=== PATIENT | female | born 1945 | race Two or more races ===

== ENCOUNTER 2016-10-22 13:21 | Emergency (ER) | payer MEDICARE, MEDICAID ==
[~2016-10-22] VITALS: Ht 160 cm; Wt 81.2 kg
[~2016-10-22 13:21] MED LIST: ALBUTEROL SULF8.5 GM INH; ENTEX T 60-3751 EACH PO; ETODOLAC400 MG PO; FOLIC ACID1 MG ORAL; METHOTREXATE2.5 MG PO; PHENERGAN6.25 MG/5 ORAL; PREDNISONE10 MG ORAL; PROVENTIL HFA6.7 G1 IH; QVAR7.3 GM INH
[2016-10-22] MEDS ORDERED: Ipratropium 0.02% Inh Soln 2.5ml UD HHN ONE (13:45)
[2016-10-22] MEDS ORDERED: Albuterol ud Inhalation HHN ONE (13:45)
--- NOTE | 2016-10-22 14:25 | Emergency Room Report ---
History of Present Illness General Chief Complaint: Asthma Source: Patient, Medical Record Present Illness HPI The patient is a 70-year-old female with a history of allergies and asthma presenting for chest congestion, nasal congestion, and dry cough which began one week prior. The patient was recently given a prescription for albuterol, antibiotics and prednisone the symptoms which has not been helping. The patient denies other symptoms including nausea, vomiting, fever, chills, shortness of breath, diaphoresis, hemoptysis, dizziness, headache Allergies: Coded Allergies: No Known Allergies (Unverified , 07/06/14) Patient History Past Medical History: see triage record Pertinent Family History: none Reviewed Nursing Documentation: PMH: Agreed, PSxH: Agreed Nursing Documentation-PMH Hx Hypertension: Yes Hx Asthma: Yes Review of Systems All Other Systems: negative except mentioned in HPI Physical Exam Vital Signs Date Time Temp Pulse Resp B/P Pulse Ox O2 Delivery O2 Flow Rate FiO2 10/22/16 13:31 98.1 82 20 136/87 97 Room Air 10/22/16 13:55 21 Sp02 EP Interpretation: reviewed, normal General Appearance: no apparent distress, alert, GCS 15, non-toxic Head: normocephalic, atraumatic Eyes: bilateral eye PERRL, bilateral eye normal inspection ENT: normal pharynx, normal voice, TMs + canals normal, uvula midline, nasal congestion, other - Nasal turbinate edema Neck: full range of motion, supple/symm/no masses Respiratory: chest non-tender, lungs clear, normal breath sounds, speaking full sentences Cardiovascular #1: regular rate, rhythm, no edema Musculoskeletal: back normal, gait/station normal, normal range of motion, non- tender, calf tenderness Neurologic: alert, oriented x3, responsive, motor strength/tone normal, sensory intact, speech normal Psychiatric: judgement/insight normal, memory normal, mood/affect normal, no suicidal/homicidal ideation Skin: normal color, no rash, warm/dry, well hydrated Lymphatic: no adenopathy Medical Decision Making PA Attestation Dr. Diaz is my supervising physician. Patient management was discussed with my supervising physician Diagnostic Impression: Primary Impression: Allergic rhinitis ER Course The patient is a 70-year-old female with a history of allergies and asthma presenting for chest congestion, nasal congestion, and dry cough Differential diagnosis include but not limited to allergic rhinitis, seasonal allergies, asthma, pharyngitis, sinusitis, PNA, bronchitis PE: No apparent distress. No TTP over maxillary or frontal sinuses. Lungs CTA bilat. No wheezing. No accessory muscle use. Heart: RRR, no abnormal heart sounds Ears: external auditory canal clear. Non erythematous. Bilat TM intact. Cone of light present bilat. No bulging of TM. No serous fluid seen. + nasal D/C. There is bilateral nasal turbinate edema and erythema No cervical lymphad No tonsillar exudate. Uvula midline.Oropharynx non erythematous The patient is given a breathing treatment and does state that she is feeling better. The patient will be discharged home with a prescription for Flonase and Benadryl. The patient will continue taking the other medications as prescribed by her PMD including the prednisone and albuterol. ER precautions are given EKG Diagnostic Results Rate: normal - 83 Rhythm: NSR ST Segments: no acute changes ASA given to the pt in ED: No PA Scribe Text EKG was reviewed and read with my supervising physician. No acute ST segment changes are seen. Normal rate and rhythm. No acute changes. Last Vital Signs Date Time Temp Pulse Resp B/P Pulse Ox O2 Delivery O2 Flow Rate FiO2 10/22/16 14:22 77 20 99 Room Air 21 10/22/16 13:31 98.1 136/87 Status: improved Disposition: HOME, SELF-CARE Condition: Improved Scripts Diphenhydramine Hcl* (BENADRYL*) 25 Mg Capsule 25 MG ORAL Q6H Y for Itching/Pruritis, #30 CAP Prov: ADY SIDHUAOneal 10/22/16 Fluticasone Propionate (Flonase Allergy Relief) 9.9 Ml [place].susp 1 ML NS DAILY, #10 ML Prov: ADY SIDHU P.A. 10/22/16 Referrals: NOT CHOSEN IPA/,REFERRING (PCP) ADY SIDHU Oct 22, 2016 14:25
[2016-10-22] MEDS ORDERED: FLONASE ALLERG9.9 ML NS (14:32)
[2016-10-22] MEDS ORDERED: BENADRYL25 MG ORAL (14:32)
[2016-10-22 14:40] VITALS: BP 136/87
--- NOTE | 2016-10-24 18:57 | Cardiology Report ---
APPROVED REPORT EKG Measurement Heart [id number] Normal sinus rhythm Left axis deviation Incomplete right bundle branch block Abnormal ECG
== END 2016-10-22 14:40 | disposition home or self-care (01) ==
LOC: EMR 13:50
DX: J30.9 Allergic rhinitis, unspecified (principal); J45.909 Unspecified asthma, uncomplicated; I10 Essential (primary) hypertension
CPT/HCPCS: 93005; 94640; 94664; 99284

== ENCOUNTER 2017-03-09 16:37 | Inpatient (IN) | payer MEDICARE, MEDICAID ==
[~2017-03-09] VITALS: Ht 165.1 cm; Wt 68.9 kg
[~2017-03-09 16:37] MED LIST changes: +BENADRYL25 MG ORAL; +FLONASE ALLERG9.9 ML NS
[2017-03-09 17:03] VITALS: BP 148/89
[2017-03-09] MEDS ORDERED: Solu-MEDROL 125mg Inj IVP ONE (17:15)
[2017-03-09] MEDS: Albuterol ud Inhalation HHN SCH ×3 (17:15→17:45)
[2017-03-09] MEDS: Ipratropium 0.02% Inh Soln 2.5ml UD HHN SCH ×3 (17:15→17:45)
[2017-03-09 17:27] LABS: BASOPHILS % (AUTO) 1.3 % (0.0-2.0); EOSINOPHILS % (AUTO) 4.3 % (0.0-3.0); LYMPHOCYTES % (AUTO) 30.7 % (20.0-45.0); MEAN CORPUSCULAR HEMOGLOBIN 30.6 PG (27.0-31.0); MEAN CORPUSCULAR HGB CONC 34.9 G/DL (32.0-36.0); MEAN CORPUSCULAR VOLUME 88 FL (80-99); MONOCYTES % (AUTO) 11.2 % (1.0-10.0); NEUTROPHILS % (AUTO) 52.4 % (45.0-75.0); PLATELET COUNT 259 K/UL (150-450); RED BLOOD COUNT 3.69 M/UL (4.20-5.40); RED CELL DISTRIBUTION WIDTH 14.8 % (11.6-14.8); WHITE BLOOD COUNT 5.2 K/UL (4.8-10.8)
[2017-03-09 17:56] LABS: TROPONIN I < 0.30 ng/mL (<=0.30)
[2017-03-09 18:00] LABS: ALANINE AMINOTRANSFERASE 28 U/L (3-33); ALBUMIN/GLOBULIN RATIO 1.7 (1.0-2.7); ANION GAP 11 (5-15); ASPARTATE AMINO TRANSFERASE 33 U/L (5-40); CALCIUM 8.5 mg/dL (8.6-10.2); CARBON DIOXIDE 27 mEQ/L (20-30); CHLORIDE 104 mEQ/L (98-107); CREATININE 0.8 mg/dL (0.5-0.9); GLOMERULAR FILTRATION RATE > 60 mL/min (>60); HEMOLYSIS 7; POTASSIUM 3.9 mEQ/L (3.4-4.9); SODIUM 142 mEQ/L (135-145); TOTAL PROTEIN 6.6 g/dL (6.6-8.7)
[2017-03-09 18:10] LABS: CKMB < 1.5 ng/mL (< 3.8)
[2017-03-09] MEDS ORDERED: Azithromycin 500 MG in NS 275 ML IV SCH (18:30)
[2017-03-09] MEDS ORDERED: cefTRIAXone 1 GM in NS 55 ML IV SCH (18:30)
[2017-03-09] MEDS ORDERED: Azithromycin 500mg Inj IV ONE (18:30)
[2017-03-09 18:44] LABS: APPEARANCE,URINE CLEAR; KETONES,URINE NEGATIVE (NEGATIVE); LEUKOCYTE ESTERASE ,URINE 3+ (NEGATIVE); NITRITE,URINE NEGATIVE (NEGATIVE); PH,URINE 8 (4.5-8.0); PROTEIN,URINE NEGATIVE (NEGATIVE); UROBILINOGEN,URINE NORMAL MG/DL (0.0-1.0)
[2017-03-09 18:53] LABS: RBC,URINE 0-2 /HPF (0 - 2)
[2017-03-09 18:54] LABS: AMORPHOUS SEDIMENT,UR FEW /LPF; BACTERIA,URINE FEW /HPF; SQUAMOUS EPITHELIAL CELL,UR FEW /LPF (NONE/OCC)
[2017-03-09 18:58] VITALS: BP 159/78
[2017-03-09] MEDS ORDERED: ALENDRONATE SOD70 MG ORAL (19:25)
[2017-03-09] MEDS ORDERED: CARVEDILOL6.25 MG ORAL (19:26)
[2017-03-09] MEDS ORDERED: OMEPRAZOLE20 M2 ORAL (19:26)
[2017-03-09] MEDS ORDERED: METHOTREXATE2.5 MG PO (19:32)
[2017-03-09] MEDS ORDERED: DICLOFENAC SODI75 MG ORAL (19:34)
[2017-03-09] MEDS ORDERED: LOSARTAN POTASS50 MG ORAL (19:35)
[2017-03-09] MEDS ORDERED: IBUPROFEN600 MG ORAL (19:39)
--- NOTE | 2017-03-09 19:47 | Emergency Room Report ---
History of Present Illness General Chief Complaint: Dyspnea/Respdistress Source: Patient Present Illness HPI 71 year-old female presents ED for evaluation. Patient states for one month she 's been feeling short of breath with chest tightness. Notes history of asthma. States she is unable to take a deep breath. Denies fevers or chills. Notes cough with yellowish phlegm. Denies chest pain. Lasix contacts or recent travel. No other aggravating factors. Denies any other associated symptoms Allergies: Coded Allergies: No Known Allergies (Unverified , 07/06/14) Patient History Past Medical History: HTN, asthma Past Surgical History: none Pertinent Family History: none Social History: Denies: alcohol use, drug use, smoking Now: No Immunizations: UTD Reviewed Nursing Documentation: PMH: Agreed, PSxH: Agreed Nursing Documentation-PMH Hx Hypertension: Yes Hx Asthma: Yes Review of Systems All Other Systems: negative except mentioned in HPI Physical Exam Vital Signs Date Time Temp Pulse Resp B/P Pulse Ox O2 Delivery O2 Flow Rate FiO2 03/09/17 16:45 98.1 78 19 146/93 94 Room Air 03/09/17 17:03 2.0 Sp02 EP Interpretation: reviewed, normal General Appearance: obese Head: normocephalic Eyes: bilateral eye PERRL, bilateral eye normal inspection ENT: normal ENT inspection Neck: normal inspection Respiratory: decreased breath sounds, wheezing Cardiovascular #1: regular rate, rhythm, no edema Gastrointestinal: normal inspection Rectal: deferred Genitourinary: no CVA tenderness Musculoskeletal: normal inspection Neurologic: alert, oriented x3, responsive, motor strength/tone normal, sensory intact, speech normal Psychiatric: normal inspection Skin: normal inspection Lymphatic: normal inspection Medical Decision Making Diagnostic Impression: Primary Impression: Asthma exacerbation Additional Impression: Pneumonia Qualified Codes: J18.9 - Pneumonia, unspecified organism ER Course Hospital Course 71-year-old F presenting to ED with SOB. h/o asthma Differential diagnoses include: Pneumonia, CHF exacerbation, pneumothorax, fluid overload Clinical course Patient placed on stretcher. On cardiac tech with stable vitals. After initial history and physical, I ordered nebulizer treatments. I ordered labs, IV fluids, EKG, chest x-ray, blood cultures, UA. Labs - no leukocytosis noted, hemoglobin/hematocrit stable, electrolytes okay, lactate okay, troponins negative CXR - bilateral atelectasis/consolidation EKG - NSR, no acute changes intperreted by me abx given Case discussed with Dr. Michael and he agreed to the patient to his service for further care and support I feel this is a highly complex case requiring extensive working including EKG/ Rhythm strip, Xray/CT/US, Blood/urine lab work, repeat exams while in ED, and administration of strong opiates/narcotics for pain control, admission to hospital or close patient follow up. Diagnosis - asthma exacerbation, pneumonia Patient admitted to telemetry in serious condition Labs Test 03/09/17 17:03 03/09/17 18:09 White Blood Count 5.2 K/UL (4.8-10.8) Red Blood Count 3.69 M/UL (4.20-5.40) Hemoglobin 11.3 G/DL (12.0-16.0) Hematocrit 32.4 % (37.0-47.0) Mean Corpuscular Volume 88 FL (80-99) Mean Corpuscular Hemoglobin 30.6 PG (27.0-31.0) Mean Corpuscular Hemoglobin Concent 34.9 G/DL (32.0-36.0) Red Cell Distribution Width 14.8 % (11.6-14.8) Platelet Count 259 K/UL (150-450) Mean Platelet Volume 7.0 FL (6.5-10.1) Neutrophils (%) (Auto) 52.4 % (45.0-75.0) Lymphocytes (%) (Auto) 30.7 % (20.0-45.0) Monocytes (%) (Auto) 11.2 % (1.0-10.0) Eosinophils (%) (Auto) 4.3 % (0.0-3.0) Basophils (%) (Auto) 1.3 % (0.0-2.0) Sodium Level 142 mEQ/L (135-145) Potassium Level 3.9 mEQ/L (3.4-4.9) Chloride Level 104 mEQ/L (98-107) Carbon Dioxide Level 27 mEQ/L (20-30) Anion Gap 11 (5-15) Blood Urea Nitrogen 14 mg/dL (7-23) Creatinine 0.8 mg/dL (0.5-0.9) Estimat Glomerular Filtration Rate > 60 mL/min (>60) Glucose Level 103 mg/dL (74-106) Lactic Acid Level 1.60 mmol/L (0.66-2.22) Calcium Level 8.5 mg/dL (8.6-10.2) Total Bilirubin 0.5 mg/dL (0.0-1.2) Aspartate Amino Transf (AST/SGOT) 33 U/L (5-40) Alanine Aminotransferase (ALT/SGPT) 28 U/L (3-33) Alkaline Phosphatase 95 U/L (35-104) Total Creatine Kinase 75 U/L (26-140) Creatine Kinase MB < 1.5 ng/mL (< 3.8) Creatine Kinase MB Relative Index Troponin I < 0.30 ng/mL (<=0.30) Pro-B-Type Natriuretic Peptide 163 pg/mL (0-125) Total Protein 6.6 g/dL (6.6-8.7) Albumin 4.2 g/dL (3.5-5.2) Globulin 2.4 g/dL Albumin/Globulin Ratio 1.7 (1.0-2.7) Urine Color Pale yellow Urine Appearance Clear Urine pH 8 (4.5-8.0) Urine Specific [place] 1.010 (1.005-1.035) Urine Protein Negative (NEGATIVE) Urine Glucose (UA) Negative (NEGATIVE) Urine Ketones Negative (NEGATIVE) Urine Occult Blood Negative (NEGATIVE) Urine Nitrite Negative (NEGATIVE) Urine Bilirubin Negative (NEGATIVE) Urine Urobilinogen Normal MG/DL (0.0-1.0) Urine Leukocyte Esterase 3+ (NEGATIVE) Urine RBC 0-2 /HPF (0 - 2) Urine WBC 2-4 /HPF (0 - 2) Urine Squamous Epithelial Cells Few /LPF (NONE/OCC) Urine Amorphous Sediment Few /LPF (NONE) Urine Bacteria Few /HPF (NONE) EKG Diagnostic Results Rate: normal Rhythm: NSR ST Segments: no acute changes ASA given to the pt in ED: No Rhythm Strip Diag. Results EP Interpretation: yes Rhythm: NSR, no PVC's, no ectopy Chest X-Ray Diagnostic Results Chest X-Ray Diagnostic Results : Chest X-Ray Ordered: Yes # of Views/Limited/Complete: 1 View Indication: Shortness of Breath EP Interpretation: Yes Interpretation: no pneumothorax, no acute cardiopulmonary disease, other - bilateral atelectasis/effusion Impression: Other - pneumonia Interpreting ER Provider: Electronically signed by Perry Diaz MD Last Vital Signs Date Time Temp Pulse Resp B/P Pulse Ox O2 Delivery O2 Flow Rate FiO2 03/09/17 18:58 98.2 77 20 159/78 100 Nasal Cannula 03/09/17 17:45 2.0 Status: improved Disposition: ADMITTED INPATIENT Condition: Serious Referrals: NOT CHOSEN IPA/,REFERRING (PCP) PERRY DIAZ M.D. Mar 09, 2017 19:47
[2017-03-09 21:07] VITALS: BP 148/91
[2017-03-09] MEDS ORDERED: DuoNeb 0.5-3(2.5)mg/3ml neb HHN PRN (22:00)
[2017-03-09] MEDS ORDERED: BENADRYL25 M3 PO (22:01)
[2017-03-09] MEDS ORDERED: GABAPENTIN100 MG ORAL (22:01)
[2017-03-09] MEDS ORDERED: Promethazine/Codeine 5ml UD ORAL PRN (22:15)
[2017-03-09 23:58] VITALS: BP 143/88
[2017-03-10 04:05] VITALS: BP 141/89
[2017-03-10 08:00] VITALS: BP 133/74
[2017-03-10] MEDS ORDERED: Carvedilol 6.25mg Tab ORAL SCH (09:00)
[2017-03-10] MEDS ORDERED: Pneumococcal Vaccine 25mcg/0.5ml IM ONE (09:00)
[2017-03-10] MEDS ORDERED: Diclofenac 75mg tab ORAL SCH (09:00)
[2017-03-10] MEDS ORDERED: Losartan 50mg tab ORAL SCH (09:00)
[2017-03-10 09:09] LABS: BASOPHILS % (AUTO) 0.1 % (0.0-2.0); LYMPHOCYTES % (AUTO) 11.7 % (20.0-45.0); MEAN CORPUSCULAR HEMOGLOBIN 28.9 PG (27.0-31.0); MEAN CORPUSCULAR HGB CONC 32.7 G/DL (32.0-36.0); MEAN CORPUSCULAR VOLUME 88 FL (80-99); NEUTROPHILS % (AUTO) 84.2 % (45.0-75.0); PLATELET COUNT 315 K/UL (150-450); RED BLOOD COUNT 4.06 M/UL (4.20-5.40); RED CELL DISTRIBUTION WIDTH 14.6 % (11.6-14.8)
[2017-03-10 09:22] LABS: TROPONIN I < 0.30 ng/mL (<=0.30)
[2017-03-10 09:24] LABS: ALANINE AMINOTRANSFERASE 31 U/L (3-33); ALBUMIN/GLOBULIN RATIO 1.2 (1.0-2.7); ANION GAP 16 (5-15); ASPARTATE AMINO TRANSFERASE 28 U/L (5-40); CALCIUM 8.3 mg/dL (8.6-10.2); CARBON DIOXIDE 24 mEQ/L (20-30); CHLORIDE 104 mEQ/L (98-107); CREATININE 0.7 mg/dL (0.5-0.9); GLOMERULAR FILTRATION RATE > 60 mL/min (>60); HEMOLYSIS 2; PHOSPHORUS 2.9 mg/dL (2.5-4.8); POTASSIUM 3.3 mEQ/L (3.4-4.9); SODIUM 144 mEQ/L (135-145); TOTAL PROTEIN 7.1 g/dL (6.6-8.7)
--- NOTE | 2017-03-10 10:41 | Diagnostic Imaging Report ---
Indication: SOB Technique: One view of the chest Comparison: 12/25/2015 Findings: There is some atelectasis at the left lung base. Lungs and pleural space are otherwise clear. Heart size is normal. Aorta is tortuous. Impression: No acute process
--- NOTE | 2017-03-10 11:04 | Consultation ---
Consult Note Consult Note Chief Complaint: Dyspnea/Respdistress 71 year-old female presents ED for evaluation. Patient states for one month she 's been feeling short of breath with chest tightness. Notes history of asthma. States she is unable to take a deep breath. Denies fevers or chills. Notes cough with yellowish phlegm. Denies chest pain. Lasix contacts or recent travel. No other aggravating factors. Denies any other associated symptoms Past Medical History: HTN, asthma Hx Hypertension: Yes Hx Asthma: Yes Assessment/Plan Admitted with Pneumonia and Asthma HTN HypoKalemia Plan: DC NSAIDs ...( Asthma) K supplement- Adjust BP meds Gastric support Per consultants DIEGO ORR Mar 10, 2017 11:04
[2017-03-10 12:00] VITALS: BP 145/95
--- NOTE | 2017-03-10 12:57 | Diagnostic Imaging Report ---
APPROVED REPORT CPT Code: 81639 Present Symptoms Shortness of breath Comments: R/O DVT BILATERAL: Imaging reveals a patent deep venous system bilaterally. There is no evidence of thrombus within the femoral, popliteal or tibial segments. The greater saphenous veins are also within normal limits. Doppler indicates normal spontaneous flow within these segments.
--- NOTE | 2017-03-10 12:58 | Consultation ---
History of Present Illness General Date patient seen: Mar 10, 2017 Chief Complaint: Dyspnea/Respdistress Reason for Consultation: dyspnea Present Illness HPI 71 year-old female with hx of asthma and allergies presented to ED for evaluation of short of breath with chest tightness. she is unable to take a deep breath. Denies fevers or chills. Notes cough with yellowish phlegm. Denies chest pain. Lasix contacts or recent travel. No other aggravating factors. Denies any other associated symptoms. Pt was diagnosed to have acute exacerbation of her asthma and admitted to telemetry. Allergies: Coded Allergies: No Known Allergies (Unverified , 07/06/14) Medication History Scheduled Albuterol Sulfate* (Albuterol Sulfate Mdi*), 2 PUFF INH Q4H Alendronate Sodium* (Fosamax*), 70 MG ORAL ONCE A WEEK, (Reported) Carvedilol* (Carvedilol*), 6.25 MG ORAL BID, (Reported) Diclofenac Sod* (Voltaren*), 75 MG ORAL BID, (Reported) Diphenhydramine HCl (Benadryl), 25 MG PO QHS, (Reported) Fluticasone Propionate (Flonase Allergy Relief), 1 ML NS DAILY Gabapentin* (Gabapentin*), 200 MG ORAL QHS, (Reported) Losartan Potassium* (Losartan Potassium*), 100 MG ORAL DAILY, (Reported) Methotrexate Sodium* (Methotrexate*), 20 MG PO ONCE A WEEK, (Reported) Omeprazole (Omeprazole), 20 MG ORAL DAILY, (Reported) Scheduled PRN Diphenhydramine Hcl* (Benadryl*), 25 MG ORAL Q6H PRN for Itching/Pruritis Ibuprofen* (Motrin*), 200 MG ORAL Q6H PRN for For Pain, (Reported) Discontinued Medications Beclomethasone Dipropionate 40MCG Oral Inh (Qvar 40*), 1 PUFF INH TWICE A DAY, ( Reported) Discontinued Reason: Pt stopped taking med Etodolac (Etodolac), 400 MG PO BID PRN for For Pain, (Reported) Discontinued Reason: Pt stopped taking med Folic Acid* (Folic Acid*), 1 MG ORAL DAILY, (Reported) Discontinued Reason: Pt stopped taking med Guaifenesin/Pseudoephedrne Hcl (Entex T 60-375 Mg Tablet), 1 EACH PO Q12HR Discontinued Reason: Pt stopped taking med Prednisone* (Prednisone*), 10 MG ORAL DAILY Discontinued Reason: Pt stopped taking med Promethazine/Dextromethorphan (Promethazine-Dm Syrup), 1 TSP ORAL Q4H PRN for For Cough Discontinued Reason: Therapy completed Patient History Healthcare decision maker Resuscitation status Full Code Advanced Directive on File Past Medical/Surgical History Past Medical/Surgical History: (1) Chronic obstructive pulmonary disease (COPD) (2) Allergic rhinitis Physical Exam General Appearance: WD/WN, no apparent distress Lines, tubes and drains: peripheral, central line HEENT: normocephalic, atraumatic, PERRL Neck: non-tender, normal alignment Respiratory/Chest: chest wall non-tender, lungs clear Cardiovascular/Chest: normal peripheral pulses Abdomen: normal bowel sounds Last 24 Hour Vital Signs Date Time Temp Pulse Resp B/P Pulse Ox O2 Delivery O2 Flow Rate FiO2 03/10/17 09:36 141/89 03/10/17 09:35 90 141/89 03/10/17 08:00 97.2 86 16 133/74 93 Room Air 03/10/17 07:45 90 16 Nasal Cannula 2.0 03/10/17 04:05 98.3 90 18 141/89 97 Room Air 03/10/17 04:00 93 03/10/17 00:00 93 03/09/17 23:58 98.8 94 17 143/88 96 Room Air 03/09/17 21:07 97.7 89 18 148/91 96 Room Air 03/09/17 21:00 70 14 140/89 100 Room Air 03/09/17 18:58 98.2 77 20 159/78 100 Nasal Cannula 03/09/17 17:45 72 15 100 Nasal Cannula 2.0 03/09/17 17:18 73 16 99 Nasal Cannula 2.0 03/09/17 17:03 98.2 70 14 148/89 100 Nasal Cannula 2.0 03/09/17 17:03 72 15 Nasal Cannula 2.0 03/09/17 16:45 98.1 78 19 146/93 94 Room Air Intake and Output 03/09/17 03/10/17 19:00 07:00 Intake Total 1000 ml 330 ml Balance 1000 ml 330 ml Intake Oral 0 ml IV Total 1000 ml 330 ml # Voids 2 Laboratory Tests Test 03/09/17 17:03 03/09/17 18:09 03/10/17 08:30 White Blood Count 5.2 K/UL (4.8-10.8) 7.0 K/UL (4.8-10.8) Red Blood Count 3.69 M/UL (4.20-5.40) L 4.06 M/UL (4.20-5.40) L Hemoglobin 11.3 G/DL (12.0-16.0) L 11.8 G/DL (12.0-16.0) L Hematocrit 32.4 % (37.0-47.0) L 36.0 % (37.0-47.0) L Mean Corpuscular Volume 88 FL (80-99) 88 FL (80-99) Mean Corpuscular Hemoglobin 30.6 PG (27.0-31.0) 28.9 PG (27.0-31.0) Mean Corpuscular Hemoglobin Concent 34.9 G/DL (32.0-36.0) 32.7 G/DL (32.0-36.0) Red Cell Distribution Width 14.8 % (11.6-14.8) 14.6 % (11.6-14.8) Platelet Count 259 K/UL (150-450) 315 K/UL (150-450) Mean Platelet Volume 7.0 FL (6.5-10.1) 7.0 FL (6.5-10.1) Neutrophils (%) (Auto) 52.4 % (45.0-75.0) 84.2 % (45.0-75.0) H Lymphocytes (%) (Auto) 30.7 % (20.0-45.0) 11.7 % (20.0-45.0) L Monocytes (%) (Auto) 11.2 % (1.0-10.0) H 4.0 % (1.0-10.0) Eosinophils (%) (Auto) 4.3 % (0.0-3.0) H 0.0 % (0.0-3.0) Basophils (%) (Auto) 1.3 % (0.0-2.0) 0.1 % (0.0-2.0) Sodium Level 142 mEQ/L (135-145) 144 mEQ/L (135-145) Potassium Level 3.9 mEQ/L (3.4-4.9) 3.3 mEQ/L (3.4-4.9) L Chloride Level 104 mEQ/L (98-107) 104 mEQ/L (98-107) Carbon Dioxide Level 27 mEQ/L (20-30) 24 mEQ/L (20-30) Anion Gap 11 (5-15) 16 (5-15) H Blood Urea Nitrogen 14 mg/dL (7-23) 14 mg/dL (7-23) Creatinine 0.8 mg/dL (0.5-0.9) 0.7 mg/dL (0.5-0.9) Estimat Glomerular Filtration Rate > 60 mL/min (>60) > 60 mL/min (>60) Glucose Level 103 mg/dL (74-106) 173 mg/dL (74-106) H Lactic Acid Level 1.60 mmol/L (0.66-2.22) Calcium Level 8.5 mg/dL (8.6-10.2) L 8.3 mg/dL (8.6-10.2) L Total Bilirubin 0.5 mg/dL (0.0-1.2) 0.3 mg/dL (0.0-1.2) Aspartate Amino Transf (AST/SGOT) 33 U/L (5-40) 28 U/L (5-40) Alanine Aminotransferase (ALT/SGPT) 28 U/L (3-33) 31 U/L (3-33) Alkaline Phosphatase 95 U/L (35-104) 99 U/L (35-104) Total Creatine Kinase 75 U/L (26-140) Creatine Kinase MB < 1.5 ng/mL (< 3.8) Creatine Kinase MB Relative Index Troponin I < 0.30 ng/mL (<=0.30) < 0.30 ng/mL (<=0.30) Pro-B-Type Natriuretic Peptide 163 pg/mL (0-125) H Total Protein 6.6 g/dL (6.6-8.7) 7.1 g/dL (6.6-8.7) Albumin 4.2 g/dL (3.5-5.2) 4.0 g/dL (3.5-5.2) Globulin 2.4 g/dL 3.1 g/dL Albumin/Globulin Ratio 1.7 (1.0-2.7) 1.2 (1.0-2.7) Urine Color Pale yellow Urine Appearance Clear Urine pH 8 (4.5-8.0) Urine Specific [place] 1.010 (1.005-1.035) Urine Protein Negative (NEGATIVE) Urine Glucose (UA) Negative (NEGATIVE) Urine Ketones Negative (NEGATIVE) Urine Occult Blood Negative (NEGATIVE) Urine Nitrite Negative (NEGATIVE) Urine Bilirubin Negative (NEGATIVE) Urine Urobilinogen Normal MG/DL (0.0-1.0) Urine Leukocyte Esterase 3+ (NEGATIVE) H Urine RBC 0-2 /HPF (0 - 2) Urine WBC 2-4 /HPF (0 - 2) Urine Squamous Epithelial Cells Few /LPF (NONE/OCC) Urine Amorphous Sediment Few /LPF (NONE) H Urine Bacteria Few /HPF (NONE) Phosphorus Level 2.9 mg/dL (2.5-4.8) Magnesium Level 2.0 mg/dL (1.7-2.5) Height (Feet): 5 Height (Inches): 5.00 Weight (Pounds): 152 Medications Current Medications Medications (Trade) Dose Ordered Sig/Shivam Route PRN Reason Start Time Stop Time Status Last Admin Dose Admin Acetaminophen (Tylenol) 650 mg Q4H PRN ORAL Mild Pain/Temp > 100.5 03/09/17 22:00 04/08/17 21:59 Albuterol/ Ipratropium (DuoNeb 0.5-3(2.5)mg/3ml) 3 ml Q4H PRN HHN Shortness of Breath 03/09/17 22:00 03/14/17 21:59 Carvedilol (Coreg) 12.5 mg Q12HR ORAL 03/10/17 21:00 04/09/17 20:59 Diphenhydramine HCl (Benadryl) 25 mg QHS ORAL 03/09/17 22:00 04/08/17 21:59 03/09/17 22:41 Gabapentin (Neurontin) 200 mg QHS ORAL 03/09/17 22:00 04/08/17 21:59 03/09/17 22:41 Losartan Potassium (Cozaar) 100 mg DAILY ORAL 03/10/17 09:00 04/09/17 08:59 03/10/17 09:36 Pantoprazole (Protonix) 40 mg BID ORAL 03/10/17 18:00 04/09/17 17:59 Potassium Chloride (K-Dur) 40 meq DAILY ORAL 03/10/17 11:30 04/09/17 11:29 03/10/17 11:47 Promethazine HCl/ Codeine (Phenergan with Codeine) 5 ml Q4H PRN ORAL For Cough 03/09/17 22:15 04/08/17 22:14 Assessment/Plan Problem List: (1) Acute asthma exacerbation ICD Codes: J45.901 - Unspecified asthma with (acute) exacerbation SNOMED: 621604598 (2) Purulent bronchitis ICD Codes: J41.1 - Mucopurulent chronic bronchitis SNOMED: 94809113 (3) Chronic obstructive pulmonary disease (COPD) ICD Codes: J44.9 - Chronic obstructive pulmonary disease, unspecified SNOMED: 24889777 Assessment/Plan respiratory treatment short term IV steroids check sputum titrate fio2 to sat of 92% dvt prophylaxis KASHIF SMITH Mar 10, 2017 12:58
[2017-03-10] MEDS ORDERED: Solu-MEDROL 125mg Inj IV SCH (13:10)
--- NOTE | 2017-03-10 13:46 | Infectious Diseases Prog Note ---
Assessment/Plan Problems: (1) Purulent bronchitis Assessment & Plan: will start levaquin empirically , send sputum for culture (2) Acute asthma exacerbation Assessment & Plan: continue antibiotics, inhalers, taper steroids (3) Allergic rhinitis Assessment & Plan: continue antihistamines, follow up with ENT (4) Chronic obstructive pulmonary disease (COPD) Assessment & Plan: due to bronchitis, continue bronchodilators, and antibiotics , taper steroids Subjective Allergies: Coded Allergies: No Known Allergies (Unverified , 07/06/14) Objective Vital Signs Last 24 Hour Vital Signs Date Time Temp Pulse Resp B/P Pulse Ox O2 Delivery O2 Flow Rate FiO2 03/10/17 09:36 141/89 03/10/17 09:35 90 141/89 03/10/17 08:00 97.2 86 16 133/74 93 Room Air 03/10/17 07:45 90 16 Nasal Cannula 2.0 03/10/17 04:05 98.3 90 18 141/89 97 Room Air 03/10/17 04:00 93 03/10/17 00:00 93 03/09/17 23:58 98.8 94 17 143/88 96 Room Air 03/09/17 21:07 97.7 89 18 148/91 96 Room Air 03/09/17 21:00 70 14 140/89 100 Room Air 03/09/17 18:58 98.2 77 20 159/78 100 Nasal Cannula 03/09/17 17:45 72 15 100 Nasal Cannula 2.0 03/09/17 17:18 73 16 99 Nasal Cannula 2.0 03/09/17 17:03 98.2 70 14 148/89 100 Nasal Cannula 2.0 03/09/17 17:03 72 15 Nasal Cannula 2.0 03/09/17 16:45 98.1 78 19 146/93 94 Room Air Height (Feet): 5 Height (Inches): 5.00 Weight (Pounds): 152 Laboratory Tests Test 03/09/17 17:03 03/09/17 18:09 03/10/17 08:30 White Blood Count 5.2 K/UL (4.8-10.8) 7.0 K/UL (4.8-10.8) Red Blood Count 3.69 M/UL (4.20-5.40) L 4.06 M/UL (4.20-5.40) L Hemoglobin 11.3 G/DL (12.0-16.0) L 11.8 G/DL (12.0-16.0) L Hematocrit 32.4 % (37.0-47.0) L 36.0 % (37.0-47.0) L Mean Corpuscular Volume 88 FL (80-99) 88 FL (80-99) Mean Corpuscular Hemoglobin 30.6 PG (27.0-31.0) 28.9 PG (27.0-31.0) Mean Corpuscular Hemoglobin Concent 34.9 G/DL (32.0-36.0) 32.7 G/DL (32.0-36.0) Red Cell Distribution Width 14.8 % (11.6-14.8) 14.6 % (11.6-14.8) Platelet Count 259 K/UL (150-450) 315 K/UL (150-450) Mean Platelet Volume 7.0 FL (6.5-10.1) 7.0 FL (6.5-10.1) Neutrophils (%) (Auto) 52.4 % (45.0-75.0) 84.2 % (45.0-75.0) H Lymphocytes (%) (Auto) 30.7 % (20.0-45.0) 11.7 % (20.0-45.0) L Monocytes (%) (Auto) 11.2 % (1.0-10.0) H 4.0 % (1.0-10.0) Eosinophils (%) (Auto) 4.3 % (0.0-3.0) H 0.0 % (0.0-3.0) Basophils (%) (Auto) 1.3 % (0.0-2.0) 0.1 % (0.0-2.0) Sodium Level 142 mEQ/L (135-145) 144 mEQ/L (135-145) Potassium Level 3.9 mEQ/L (3.4-4.9) 3.3 mEQ/L (3.4-4.9) L Chloride Level 104 mEQ/L (98-107) 104 mEQ/L (98-107) Carbon Dioxide Level 27 mEQ/L (20-30) 24 mEQ/L (20-30) Anion Gap 11 (5-15) 16 (5-15) H Blood Urea Nitrogen 14 mg/dL (7-23) 14 mg/dL (7-23) Creatinine 0.8 mg/dL (0.5-0.9) 0.7 mg/dL (0.5-0.9) Estimat Glomerular Filtration Rate > 60 mL/min (>60) > 60 mL/min (>60) Glucose Level 103 mg/dL (74-106) 173 mg/dL (74-106) H Lactic Acid Level 1.60 mmol/L (0.66-2.22) Calcium Level 8.5 mg/dL (8.6-10.2) L 8.3 mg/dL (8.6-10.2) L Total Bilirubin 0.5 mg/dL (0.0-1.2) 0.3 mg/dL (0.0-1.2) Aspartate Amino Transf (AST/SGOT) 33 U/L (5-40) 28 U/L (5-40) Alanine Aminotransferase (ALT/SGPT) 28 U/L (3-33) 31 U/L (3-33) Alkaline Phosphatase 95 U/L (35-104) 99 U/L (35-104) Total Creatine Kinase 75 U/L (26-140) Creatine Kinase MB < 1.5 ng/mL (< 3.8) Creatine Kinase MB Relative Index Troponin I < 0.30 ng/mL (<=0.30) < 0.30 ng/mL (<=0.30) Pro-B-Type Natriuretic Peptide 163 pg/mL (0-125) H Total Protein 6.6 g/dL (6.6-8.7) 7.1 g/dL (6.6-8.7) Albumin 4.2 g/dL (3.5-5.2) 4.0 g/dL (3.5-5.2) Globulin 2.4 g/dL 3.1 g/dL Albumin/Globulin Ratio 1.7 (1.0-2.7) 1.2 (1.0-2.7) Urine Color Pale yellow Urine Appearance Clear Urine pH 8 (4.5-8.0) Urine Specific [place] 1.010 (1.005-1.035) Urine Protein Negative (NEGATIVE) Urine Glucose (UA) Negative (NEGATIVE) Urine Ketones Negative (NEGATIVE) Urine Occult Blood Negative (NEGATIVE) Urine Nitrite Negative (NEGATIVE) Urine Bilirubin Negative (NEGATIVE) Urine Urobilinogen Normal MG/DL (0.0-1.0) Urine Leukocyte Esterase 3+ (NEGATIVE) H Urine RBC 0-2 /HPF (0 - 2) Urine WBC 2-4 /HPF (0 - 2) Urine Squamous Epithelial Cells Few /LPF (NONE/OCC) Urine Amorphous Sediment Few /LPF (NONE) H Urine Bacteria Few /HPF (NONE) Phosphorus Level 2.9 mg/dL (2.5-4.8) Magnesium Level 2.0 mg/dL (1.7-2.5) Current Medications Medications (Trade) Dose Ordered Sig/Shivam Route PRN Reason Start Time Stop Time Status Last Admin Dose Admin Acetaminophen (Tylenol) 650 mg Q4H PRN ORAL Mild Pain/Temp > 100.5 03/09/17 22:00 04/08/17 21:59 Albuterol/ Ipratropium (DuoNeb 0.5-3(2.5)mg/3ml) 3 ml Q4H PRN HHN Shortness of Breath 03/09/17 22:00 03/14/17 21:59 Carvedilol (Coreg) 12.5 mg Q12HR ORAL 03/10/17 21:00 04/09/17 20:59 Ceftriaxone Sodium/Dextrose (Rocephin/D5W) 55 ml @ 110 mls/hr Q24H IVPB 03/10/17 14:00 03/17/17 13:59 03/10/17 13:32 Diphenhydramine HCl (Benadryl) 25 mg QHS ORAL 03/09/17 22:00 04/08/17 21:59 03/09/17 22:41 Gabapentin (Neurontin) 200 mg QHS ORAL 03/09/17 22:00 04/08/17 21:59 03/09/17 22:41 Losartan Potassium (Cozaar) 100 mg DAILY ORAL 03/10/17 09:00 04/09/17 08:59 03/10/17 09:36 Methylprednisolone Sodium Succinate 60 mg 60 mg EVERY 6 HOURS IV 03/10/17 13:10 04/09/17 13:09 Pantoprazole (Protonix) 40 mg BID ORAL 03/10/17 18:00 04/09/17 17:59 Potassium Chloride (K-Dur) 40 meq DAILY ORAL 03/10/17 11:30 04/09/17 11:29 03/10/17 11:47 Promethazine HCl/ Codeine (Phenergan with Codeine) 5 ml Q4H PRN ORAL For Cough 03/09/17 22:15 04/08/17 22:14 Kota Ceja M.D. Mar 10, 2017 13:46
[2017-03-10] MEDS ORDERED: cefTRIAXone 1 GM in D5W 55 ML IVPB SCH (14:00)
[2017-03-10 16:00] VITALS: BP 152/87
--- NOTE | 2017-03-10 16:07 | Cardiology Report ---
APPROVED REPORT EKG Measurement Heart [id number] OK [id number] Normal sinus rhythm Left axis deviation Incomplete right bundle branch block Abnormal ECG
[2017-03-10] MEDS ORDERED: DuoNeb 0.5-3(2.5)mg/3ml neb HHN PRN (17:00)
[2017-03-10] MEDS ORDERED: Promethazine/Codeine 5ml UD ORAL PRN (18:15)
[2017-03-10] MEDS: Solu-MEDROL 125mg Inj IV SCH ×2 (19:19→23:46)
[2017-03-10 20:00] VITALS: BP 143/94
[2017-03-10] MEDS: Carvedilol 12.5mg tab ORAL SCH (20:21)
[2017-03-10] MEDS ORDERED: Carvedilol 12.5mg tab ORAL SCH (21:00)
--- NOTE | 2017-03-10 21:45 | Consultation ---
DATE OF CONSULTATION: INFECTIOUS DISEASE CONSULTATION REFERRING PHYSICIAN: Efren Michael M.D. REASON FOR CONSULTATION: Acute bronchitis, asthma exacerbation, recommendation for antibiotics therapy. HISTORY OF PRESENT ILLNESS: The patient is a 71-year-old female with history of asthma and hypertension, presented to the hospital with sudden onset of cough associated with shortness of breath and wheezing. The patient was not able to breath, coughing constantly, producing yellowish phlegm. She had low-grade fever, but no chills. Her cough was dry at the beginning, but then became productive. Denied any recent travel or sick contact. Denied any aggravating factors. The patient had a chest x-ray in the emergency room, did not show any acute infiltration. Since, she was admitted to the hospital for asthma exacerbation and acute bronchitis and I was consulted by the primary provider for antibiotics treatment and further management. PAST MEDICAL HISTORY: Significant for asthma and hypertension. PAST SURGICAL HISTORY: Negative. MEDICATIONS: She is on ceftriaxone and methylprednisolone. For the rest of her medications, please refer to [facility]. ALLERGIES: She has no known drug allergy. SOCIAL HISTORY: The patient lives at home with family. Denied using any drugs, tobacco, or alcohol. FAMILY HISTORY: Negative. REVIEW OF SYSTEMS: A 12-point of system reviewed were all negative apart from the one I mentioned above in my History and Physical. PHYSICAL EXAMINATION: GENERAL: The patient is a middle-aged female, obese, lying in bed, comfortable, not in distress. VITAL SIGNS: Temperature 98.2 degrees, pulse 76, respirations 17, blood pressure 145/95, and saturation 95% on room air. HEENT: Normocephalic and atraumatic. Pupils are reactive to light. Moist oral mucosa. No exudate. NECK: Supple. No lymphadenopathy. CARDIOVASCULAR: Regular rate and rhythm. No murmur or gallop. LUNGS: She had diffuse wheezing and diminished breathing sound on both lung matute. Normal breathing efforts. ABDOMEN: Soft, obese, nontender, and nondistended. Positive bowel sounds. EXTREMITIES: No edema or cyanosis. SKIN: No rash or hives. LABORATORY AND DIAGNOSTIC DATA: Labs showed white count of 7000, hemoglobin of 11.8, and platelet count of 315,000. BUN of 14 and creatinine 0.7. Urinalysis showed +3 leukocyte esterase, and few bacteria. Microbiology, sputum culture so far showed white blood cell gram-positive cocci and gram-negative rods and few gram-positive rods. Imaging, chest x-ray showed no acute process. Venous Doppler of both legs was negative for DVT. ASSESSMENT AND RECOMMENDATION: 1. acute bronchitis. We will start the patient on Levaquin empiric treatment. Await sputum for culture. 2. Acute asthma exacerbation due to the above. Continue antibiotics, inhalers and taper steroid. 3. Allergic rhinitis. Continue antihistamine. Follow up with ENT. 4. Chronic obstructive pulmonary disease with acute exacerbation due to bronchitis. Continue bronchodilator and antibiotics. Taper steroids. Thank you. Kota Ceja M.D. DR: KARIN JOB#: [id number] CC: JACKELIN
[2017-03-11] VITALS: BP 131/80
--- NOTE | 2017-03-11 00:46 | History and Physical Report ---
DATE OF ADMISSION: 03/09/2017 REASON FOR ADMISSION: Admitted for COPD/asthma exacerbation. HISTORY OF PRESENT ILLNESS: Patient states that she has been having productive cough for the last couple of days and because of coughing the patient is having chest pain, which is made worse by coughing. Since the patient has been coughing a lot, the patient is here for COPD/asthma exacerbation. The patient has allergic rhinitis as well. Does have some wheezing. Denies orthopnea. Denies heartburn. Extremities, denies any pain in the lower extremities. PAST MEDICAL HISTORY: COPD/asthma, hypertension, neuropathy, GERD, and osteoporosis. PAST SURGICAL HISTORY: Hysterectomy and abdominal surgery. MEDICATIONS: Albuterol, Fosamax, Colace, Benadryl, Flonase, gabapentin, losartan, and omeprazole. ALLERGIES: No known allergies. FAMILY HISTORY: Noncontributory. SOCIAL HISTORY: The patient denies smoking, alcohol, or illicit drugs. REVIEW OF SYSTEMS: HEENT: Denies headaches. Respiratory: Reports shortness of breath. Reports productive cough for a couple of days and wheezing. Cardiovascular: Denies chest pain or orthopnea. Gastrointestinal: Denies nausea, vomiting, or diarrhea. He does have occasional heartburn. Extremities: Denies pain in the lower extremities. Central Nervous System: No change in vision or speech pattern. PHYSICAL EXAMINATION: GENERAL: The patient is in no acute distress. VITAL SIGNS: Temperature is 98.3 degrees, pulse is 90, and blood pressure was 141/89. HEENT: PERRLA. NECK: Supple. No lymphadenopathy. CHEST: Wheezing. CARDIOVASCULAR: Regular rate and rhythm. No murmur or extra sounds. GASTROINTESTINAL: Soft, distended, and nontender. No organomegaly. EXTREMITIES: No edema. Reflexes equal on both sides. Moves all four extremities. NEUROLOGIC: Sensation is intact to light touch. LABORATORY DATA: WBC of 5.2, hemoglobin 11.3, and platelets of 259,000. Sodium 142, potassium 3.9, BUN of 14, creatinine of 0.8, and glucose of 103. ASSESSMENT AND PLAN: 1. Asthma/chronic obstructive pulmonary disease exacerbation. 2. Dehydration. We will ask Dr. Ceja, Dr. Frank, and Dr. Bojorquez to see the patient for the above-mentioned diagnoses and treatment. Ali Kathia Michael DR: SADAF JOB#: [id number] CC:
[2017-03-11 04:00] VITALS: BP 137/69
[2017-03-11] MEDS: Solu-MEDROL 125mg Inj IV SCH ×3 (05:14→21:42)
[2017-03-11 08:03] VITALS: BP 123/94
[2017-03-11] MEDS: Losartan 50mg tab ORAL SCH (08:36)
[2017-03-11] MEDS: Carvedilol 12.5mg tab ORAL SCH ×2 (08:36→21:41)
--- NOTE | 2017-03-11 09:24 | General Progress Note ---
Assessment/Plan Status: stable Assessment/Plan status; Admitted with Pneumonia and Asthma HTN HypoKalemia Plan: No labs today- No on steroids IV ! DC NSAIDs ...( Asthma) K supplement- Adjust BP meds Gastric support Per consultants: ID , Pulmonary... Subjective ROS Limited/Unobtainable: No Constitutional: Reports: malaise Respiratory: Reports: cough Allergies: Coded Allergies: No Known Allergies (Unverified , 07/06/14) Objective Last 24 Hour Vital Signs Date Time Temp Pulse Resp B/P Pulse Ox O2 Delivery O2 Flow Rate FiO2 03/11/17 08:36 123/94 03/11/17 08:36 75 123/94 03/11/17 08:03 98.1 75 21 123/94 95 Room Air 03/11/17 07:49 78 16 Room Air 03/11/17 04:00 98.8 72 20 137/69 97 Room Air 03/11/17 00:00 97.9 86 20 131/80 95 Room Air 03/10/17 23:12 74 16 100 Room Air 03/10/17 22:55 76 18 97 Nasal Cannula 2.0 03/10/17 21:30 84 16 Room Air 03/10/17 20:21 87 143/94 03/10/17 20:00 98.1 87 20 143/94 96 Room Air 03/10/17 16:00 97.2 86 18 152/87 96 Room Air 03/10/17 12:00 90 03/10/17 12:00 98.2 76 17 145/95 95 Room Air 03/10/17 09:36 141/89 03/10/17 09:35 90 141/89 Intake and Output 03/10/17 03/11/17 19:00 07:00 Intake Total 240 ml Balance 240 ml Intake Oral 240 ml # Voids 2 2 Height (Feet): 5 Height (Inches): 5.00 Weight (Pounds): 152 General Appearance: no apparent distress Respiratory/Chest: rhonchi - bilaterally DIEGO ORR Mar 11, 2017 09:24
[2017-03-11 11:41] VITALS: BP 102/73
--- NOTE | 2017-03-11 15:42 | Pulmonology Progress Note ---
Assessment/Plan Problems: (1) Acute asthma exacerbation (2) Purulent bronchitis (3) Chronic obstructive pulmonary disease (COPD) Assessment/Plan decrease steroids on levofloxacine respiratory treatment check sputum dc probably in 1-2 days. Subjective ROS Limited/Unobtainable: No Interval Events: less short of breath Allergies: Coded Allergies: No Known Allergies (Unverified , 07/06/14) Objective Last 24 Hour Vital Signs Date Time Temp Pulse Resp B/P Pulse Ox O2 Delivery O2 Flow Rate FiO2 03/11/17 11:41 98.1 77 21 102/73 99 Room Air 03/11/17 08:36 123/94 03/11/17 08:36 75 123/94 03/11/17 08:03 98.1 75 21 123/94 95 Room Air 03/11/17 07:49 78 16 Room Air 03/11/17 04:00 98.8 72 20 137/69 97 Room Air 03/11/17 00:00 97.9 86 20 131/80 95 Room Air 03/10/17 23:12 74 16 100 Room Air 03/10/17 22:55 76 18 97 Nasal Cannula 2.0 03/10/17 21:30 84 16 Room Air 03/10/17 20:21 87 143/94 03/10/17 20:00 98.1 87 20 143/94 96 Room Air 03/10/17 16:00 97.2 86 18 152/87 96 Room Air Intake and Output 03/10/17 03/11/17 19:00 07:00 Intake Total 240 ml Balance 240 ml Intake Oral 240 ml # Voids 2 2 General Appearance: WD/WN, no acute distress HEENT: normocephalic Respiratory/Chest: decreased breath sounds, crackles/rales, expiratory wheezing Cardiovascular: normal peripheral pulses, normal rate Abdomen: normal bowel sounds, non distended Genitourinary: normal external genitalia Skin: no rash Microbiology Date/Time Source Procedure Growth Status 03/09/17 18:00 Blood Blood Culture - Preliminary NO GROWTH AFTER 24 HOURS Resulted 03/09/17 17:03 Blood Blood Culture - Preliminary NO GROWTH AFTER 24 HOURS Resulted 03/10/17 06:15 Sputum Gram Stain - Final Resulted 03/10/17 06:15 Sputum Sputum Culture - Preliminary NORMAL UPPER RESPIRATORY CESAR PRESENT Resulted Current Medications Medications (Trade) Dose Ordered Sig/Shivam Route PRN Reason Start Time Stop Time Status Last Admin Dose Admin Acetaminophen (Tylenol) 650 mg Q4H PRN ORAL Mild Pain/Temp > 100.5 03/10/17 17:00 04/09/17 16:59 Albuterol/ Ipratropium (DuoNeb 0.5-3(2.5)mg/3ml) 3 ml Q4H PRN HHN Shortness of Breath 03/10/17 17:00 03/15/17 16:59 03/10/17 22:55 Carvedilol (Coreg) 12.5 mg Q12HR ORAL 03/10/17 21:00 04/09/17 20:59 03/11/17 08:36 Diphenhydramine HCl (Benadryl) 25 mg HSPRN PRN ORAL SLEEP/ITCHING 03/10/17 22:55 04/09/17 22:54 03/10/17 23:44 Gabapentin (Neurontin) 200 mg QHS ORAL 03/10/17 21:00 04/09/17 20:59 03/10/17 20:21 Levofloxacin (Levaquin) 100 ml @ 100 mls/hr Q24H IVPB 03/11/17 16:00 03/18/17 15:59 Losartan Potassium (Cozaar) 100 mg DAILY ORAL 03/11/17 09:00 04/10/17 08:59 03/11/17 08:36 Methylprednisolone Sodium Succinate (Solu-MEDROL) 60 mg EVERY 6 HOURS IV 03/10/17 18:00 04/09/17 17:59 03/11/17 12:09 Pantoprazole (Protonix) 40 mg BID ORAL 03/10/17 18:00 04/09/17 17:59 03/11/17 08:35 Potassium Chloride (K-Dur) 40 meq DAILY ORAL 03/11/17 09:00 04/10/17 08:59 03/11/17 08:35 Promethazine HCl/ Codeine (Phenergan with Codeine) 5 ml Q4H PRN ORAL For Cough 03/10/17 18:15 04/09/17 18:14 KASHIF SMITH Mar 11, 2017 15:42
[2017-03-11 15:47] VITALS: BP 137/77
--- NOTE | 2017-03-11 16:44 | Infectious Diseases Prog Note ---
Assessment/Plan Problems: (1) Purulent bronchitis Assessment & Plan: improving on levaquin empirically , await sputum for culture (2) Acute asthma exacerbation Assessment & Plan: continue antibiotics, inhalers, taper steroids (3) Allergic rhinitis Assessment & Plan: continue antihistamines, follow up with ENT (4) Chronic obstructive pulmonary disease (COPD) Assessment & Plan: due to bronchitis, continue bronchodilators, and antibiotics , taper steroids Subjective Constitutional: Reports: no symptoms HEENT: Reports: no symptoms Respiratory: Reports: dry cough, other - wheezing Breasts: Reports: no symptoms Cardiovascular: Reports: no symptoms Gastrointestinal/Abdominal: Reports: no symptoms Genitourinary: Reports: no symptoms Neurologic: Reports: no symptoms Psychiatric: Reports: no symptoms Skin: Reports: no symptoms Endocrine: Reports: no symptoms Hematologic: Reports: no symptoms Musculoskeletal: Reports: no symptoms Allergies: Coded Allergies: No Known Allergies (Unverified , 07/06/14) Objective Vital Signs Last 24 Hour Vital Signs Date Time Temp Pulse Resp B/P Pulse Ox O2 Delivery O2 Flow Rate FiO2 03/11/17 15:47 98.1 73 21 137/77 95 Room Air 03/11/17 11:41 98.1 77 21 102/73 99 Room Air 03/11/17 08:36 123/94 03/11/17 08:36 75 123/94 03/11/17 08:03 98.1 75 21 123/94 95 Room Air 03/11/17 07:49 78 16 Room Air 03/11/17 04:00 98.8 72 20 137/69 97 Room Air 03/11/17 00:00 97.9 86 20 131/80 95 Room Air 03/10/17 23:12 74 16 100 Room Air 03/10/17 22:55 76 18 97 Nasal Cannula 2.0 03/10/17 21:30 84 16 Room Air 03/10/17 20:21 87 143/94 03/10/17 20:00 98.1 87 20 143/94 96 Room Air Height (Feet): 5 Height (Inches): 5.00 Weight (Pounds): 152 General Appearance: WD/WN, no acute distress HEENT: normocephalic, atraumatic, anicteric, mucous membranes moist, PERRL Respiratory/Chest: chest wall non-tender, no respiratory distress, no accessory muscle use, decreased breath sounds, expiratory wheezing Cardiovascular: normal peripheral pulses, normal rate, regular rhythm, no gallop/murmur, no JVD Abdomen: normal bowel sounds, soft, non tender, no organomegaly, non distended , no mass, no scars Extremities: no cyanosis, no clubbing Skin: no rash, no lesions, no ulcers Microbiology Date/Time Source Procedure Growth Status 03/09/17 18:00 Blood Blood Culture - Preliminary NO GROWTH AFTER 24 HOURS Resulted 03/09/17 17:03 Blood Blood Culture - Preliminary NO GROWTH AFTER 24 HOURS Resulted 03/10/17 06:15 Sputum Gram Stain - Final Resulted 03/10/17 06:15 Sputum Sputum Culture - Preliminary NORMAL UPPER RESPIRATORY CESAR PRESENT Resulted Current Medications Medications (Trade) Dose Ordered Sig/Shivam Route PRN Reason Start Time Stop Time Status Last Admin Dose Admin Acetaminophen (Tylenol) 650 mg Q4H PRN ORAL Mild Pain/Temp > 100.5 03/10/17 17:00 04/09/17 16:59 Albuterol/ Ipratropium (DuoNeb 0.5-3(2.5)mg/3ml) 3 ml Q4H PRN HHN Shortness of Breath 03/10/17 17:00 03/15/17 16:59 03/10/17 22:55 Carvedilol (Coreg) 12.5 mg Q12HR ORAL 03/10/17 21:00 04/09/17 20:59 03/11/17 08:36 Diphenhydramine HCl (Benadryl) 25 mg HSPRN PRN ORAL SLEEP/ITCHING 03/10/17 22:55 04/09/17 22:54 03/10/17 23:44 Gabapentin (Neurontin) 200 mg QHS ORAL 03/10/17 21:00 04/09/17 20:59 03/10/17 20:21 Levofloxacin (Levaquin) 100 ml @ 100 mls/hr Q24H IVPB 03/11/17 16:00 03/18/17 15:59 03/11/17 15:45 Losartan Potassium (Cozaar) 100 mg DAILY ORAL 03/11/17 09:00 04/10/17 08:59 03/11/17 08:36 Methylprednisolone Sodium Succinate (Solu-MEDROL) 60 mg EVERY 12 HOURS IV 03/11/17 21:00 04/10/17 20:59 Pantoprazole (Protonix) 40 mg BID ORAL 03/10/17 18:00 04/09/17 17:59 03/11/17 08:35 Potassium Chloride (K-Dur) 40 meq DAILY ORAL 03/11/17 09:00 04/10/17 08:59 03/11/17 08:35 Promethazine HCl/ Codeine (Phenergan with Codeine) 5 ml Q4H PRN ORAL For Cough 03/10/17 18:15 04/09/17 18:14 Kota Ceja M.D. Mar 11, 2017 16:44
[2017-03-11] MEDS ORDERED: Tubing IV Secondary IV ONE (17:11)
[2017-03-11] MEDS ORDERED: NS 275ml ONE (17:11)
[2017-03-11 20:50] VITALS: BP 132/79
--- NOTE | 2017-03-11 22:18 | General Progress Note ---
Assessment/Plan Problem List: (1) Asthma exacerbation ICD Codes: J45.901 - Unspecified asthma with (acute) exacerbation SNOMED: 401646800 (2) Chronic obstructive pulmonary disease (COPD) ICD Codes: J44.9 - Chronic obstructive pulmonary disease, unspecified SNOMED: 06472323 (3) Allergic rhinitis ICD Codes: J30.9 - Allergic rhinitis, unspecified SNOMED: 55395155 (4) Acute asthma exacerbation ICD Codes: J45.901 - Unspecified asthma with (acute) exacerbation SNOMED: 359576644 Status: progressing Assessment/Plan asthma and copd exacerbation is improving dc in am no wheezing afebrile Subjective Respiratory: Reports: shortness of breath Allergies: Coded Allergies: No Known Allergies (Unverified , 07/06/14) Objective Last 24 Hour Vital Signs Date Time Temp Pulse Resp B/P Pulse Ox O2 Delivery O2 Flow Rate FiO2 03/11/17 21:41 70 132/79 03/11/17 20:50 97.9 70 20 132/79 96 Room Air 03/11/17 19:00 72 20 Room Air 03/11/17 15:47 98.1 73 21 137/77 95 Room Air 03/11/17 11:41 98.1 77 21 102/73 99 Room Air 03/11/17 08:36 123/94 03/11/17 08:36 75 123/94 03/11/17 08:03 98.1 75 21 123/94 95 Room Air 03/11/17 07:49 78 16 Room Air 03/11/17 04:00 98.8 72 20 137/69 97 Room Air 03/11/17 00:00 97.9 86 20 131/80 95 Room Air 03/10/17 23:12 74 16 100 Room Air 03/10/17 22:55 76 18 97 Nasal Cannula 2.0 Intake and Output 03/10/17 03/11/17 19:00 07:00 Intake Total 240 ml Balance 240 ml Intake Oral 240 ml # Voids 2 2 Height (Feet): 5 Height (Inches): 5.00 Weight (Pounds): 152 Cardiovascular: normal rate Efren Michael MD Mar 11, 2017 22:18
[2017-03-12] VITALS: BP 119/68
[2017-03-12 04:00] VITALS: BP 130/73
[2017-03-12 06:57] LABS: MEAN CORPUSCULAR HEMOGLOBIN 28.7 PG (27.0-31.0); MEAN CORPUSCULAR VOLUME 90 FL (80-99); MEAN PLATELET VOLUME 7.2 FL (6.5-10.1); PLATELET COUNT 305 K/UL (150-450); RED CELL DISTRIBUTION WIDTH 14.8 % (11.6-14.8); WHITE BLOOD COUNT 10.1 K/UL (4.8-10.8)
[2017-03-12 07:20] LABS: ALANINE AMINOTRANSFERASE 22 U/L (3-33); ALBUMIN/GLOBULIN RATIO 1.4 (1.0-2.7); ANION GAP 9 (5-15); ASPARTATE AMINO TRANSFERASE 14 U/L (5-40); CALCIUM 8.6 mg/dL (8.6-10.2); CARBON DIOXIDE 26 mEQ/L (20-30); CHLORIDE 105 mEQ/L (98-107); CREATININE 0.7 mg/dL (0.5-0.9); CRP QUANT 0.3 mg/dL (< 0.5); GLOMERULAR FILTRATION RATE > 60 mL/min (>60); HEMOLYSIS 2; MAGNESIUM 2.2 mg/dL (1.7-2.5); PHOSPHORUS 2.7 mg/dL (2.5-4.8); SODIUM 140 mEQ/L (135-145); TOTAL PROTEIN 6.4 g/dL (6.6-8.7)
[2017-03-12 07:59] LABS: ANISOCYTOSIS 1+; BAND NEUTROPHILS % (MANUAL) 0 % (0-8); BASOPHILS % (MANUAL) 0 % (0-2); EOSINOPHILS % (MANUAL) 0 % (0-3); HYPOCHROMASIA 1+; LYMPHOCYTES % (MANUAL) 10 % (20-45); NEUTROPHILS % (MANUAL) 86 % (45-75); PLATELET ESTIMATE ADEQUATE; PLATELET MORPHOLOGY NORMAL; TOTAL CELLS COUNTED 100
[2017-03-12 08:00] VITALS: BP 132/83
[2017-03-12 08:13] LABS: ERYTHROCYTE SEDIMENTATION RATE 29 MM/HR (0-30)
[2017-03-12] MEDS: Solu-MEDROL 125mg Inj IV SCH (08:43)
[2017-03-12] MEDS: Losartan 50mg tab ORAL SCH (08:45)
[2017-03-12] MEDS: Carvedilol 12.5mg tab ORAL SCH (08:47)
--- NOTE | 2017-03-12 09:44 | General Progress Note ---
Assessment/Plan Status: stable Assessment/Plan status; Admitted with Pneumonia and Asthma HTN HypoKalemia Plan: No on steroids IV ! ? switch to PO DC NSAIDs ...( Asthma) K supplement- as needed Adjust BP meds Gastric support Per consultants: ID , Pulmonary... Subjective ROS Limited/Unobtainable: No Allergies: Coded Allergies: No Known Allergies (Unverified , 07/06/14) Objective Last 24 Hour Vital Signs Date Time Temp Pulse Resp B/P Pulse Ox O2 Delivery O2 Flow Rate FiO2 03/12/17 08:47 83 16 Room Air 03/12/17 08:47 74 132/83 03/12/17 08:45 132/83 03/12/17 08:00 97.9 74 20 132/83 93 Room Air 03/12/17 04:00 97.9 70 20 130/73 97 Room Air 03/12/17 00:00 98.1 64 20 119/68 94 Room Air 03/11/17 21:41 70 132/79 03/11/17 20:50 97.9 70 20 132/79 96 Room Air 03/11/17 19:00 72 20 Room Air 03/11/17 15:47 98.1 73 21 137/77 95 Room Air 03/11/17 11:41 98.1 77 21 102/73 99 Room Air Intake and Output 03/11/17 03/12/17 19:00 07:00 Intake Total 960 ml 250 ml Balance 960 ml 250 ml Intake Oral 960 ml 250 ml # Voids 4 2 # Bowel Movements 1 Laboratory Tests 03/12/17 06:00: White Blood Count 10.1, Red Blood Count 3.80L, Hemoglobin 10.9L, Hematocrit 34.0L, Mean Corpuscular Volume 90, Mean Corpuscular Hemoglobin 28.7, Mean Corpuscular Hemoglobin Concent 32.0, Red Cell Distribution Width 14.8, Platelet Count 305, Mean Platelet Volume 7.2, Neutrophils (%) (Auto) , Lymphocytes (%) ( Auto) , Monocytes (%) (Auto) , Eosinophils (%) (Auto) , Basophils (%) (Auto) , Differential Total Cells Counted 100, Neutrophils % (Manual) 86H, Lymphocytes % (Manual) 10L, Monocytes % (Manual) 4, Eosinophils % (Manual) 0, Basophils % ( Manual) 0, Band Neutrophils 0, Platelet Estimate Adequate, Platelet Morphology Normal, Hypochromasia 1+, Anisocytosis 1+, Erythrocyte Sedimentation Rate 29, Sodium Level 140, Potassium Level 4.0, Chloride Level 105, Carbon Dioxide Level 26, Anion Gap 9, Blood Urea Nitrogen 16, Creatinine 0.7, Estimat Glomerular Filtration Rate > 60, Glucose Level 206H, Calcium Level 8.6, Phosphorus Level 2.7, Magnesium Level 2.2, Total Bilirubin < 0.2, Aspartate Amino Transf (AST/ SGOT) 14, Alanine Aminotransferase (ALT/SGPT) 22, Alkaline Phosphatase 83, C- Reactive Protein, Quantitative 0.3, Total Protein 6.4L, Albumin 3.8, Globulin 2.6, Albumin/Globulin Ratio 1.4 Height (Feet): 5 Height (Inches): 5.00 Weight (Pounds): 152 General Appearance: no apparent distress DIEGO ORR Mar 12, 2017 09:43
[2017-03-12 12:00] VITALS: BP 130/81
[2017-03-12] MEDS ORDERED: LEVAQUIN500 MG ORAL (14:34)
--- NOTE | 2017-03-12 14:55 | Infectious Diseases Prog Note ---
Assessment/Plan Problems: (1) Purulent bronchitis Assessment & Plan: improving on levaquin empirically , will give levaquin for 5 more days , sputum culture is negative (2) Acute asthma exacerbation Assessment & Plan: improved , with antibiotics, inhalers, please taper steroids (3) Allergic rhinitis Assessment & Plan: continue antihistamines, follow up with ENT (4) Chronic obstructive pulmonary disease (COPD) Assessment & Plan: due to bronchitis, continue bronchodilators, and antibiotics , taper steroids Subjective Constitutional: Reports: no symptoms HEENT: Reports: no symptoms Respiratory: Reports: no symptoms Breasts: Reports: no symptoms Cardiovascular: Reports: no symptoms Gastrointestinal/Abdominal: Reports: no symptoms Genitourinary: Reports: no symptoms Neurologic: Reports: no symptoms Psychiatric: Reports: no symptoms Skin: Reports: no symptoms Endocrine: Reports: no symptoms Hematologic: Reports: no symptoms Allergies: Coded Allergies: No Known Allergies (Unverified , 07/06/14) Objective Vital Signs Last 24 Hour Vital Signs Date Time Temp Pulse Resp B/P Pulse Ox O2 Delivery O2 Flow Rate FiO2 03/12/17 12:00 98.0 76 20 130/81 Room Air 03/12/17 08:47 83 16 Room Air 03/12/17 08:47 74 132/83 03/12/17 08:45 132/83 03/12/17 08:00 97.9 74 20 132/83 93 Room Air 03/12/17 04:00 97.9 70 20 130/73 97 Room Air 03/12/17 00:00 98.1 64 20 119/68 94 Room Air 03/11/17 21:41 70 132/79 03/11/17 20:50 97.9 70 20 132/79 96 Room Air 03/11/17 19:00 72 20 Room Air 03/11/17 15:47 98.1 73 21 137/77 95 Room Air Height (Feet): 5 Height (Inches): 5.00 Weight (Pounds): 152 General Appearance: WD/WN, no acute distress HEENT: normocephalic, atraumatic, anicteric, mucous membranes moist Respiratory/Chest: chest wall non-tender, lungs clear, no respiratory distress , no accessory muscle use, decreased breath sounds Cardiovascular: normal peripheral pulses, normal rate, regular rhythm, no gallop/murmur, no JVD Abdomen: normal bowel sounds, soft, non tender, no organomegaly, non distended , no mass Extremities: no cyanosis, no clubbing Skin: no rash, no lesions Neurologic/Psychiatric: alert, oriented x 3 Microbiology Date/Time Source Procedure Growth Status 03/09/17 18:00 Blood Blood Culture - Preliminary NO GROWTH AFTER 48 HOURS Resulted 03/09/17 17:03 Blood Blood Culture - Preliminary NO GROWTH AFTER 48 HOURS Resulted 03/10/17 06:15 Sputum Gram Stain - Final Complete 03/10/17 06:15 Sputum Sputum Culture - Final NORMAL UPPER RESPIRATORY CESAR AT 48 ... Complete Laboratory Tests Test 03/12/17 06:00 White Blood Count 10.1 K/UL (4.8-10.8) Red Blood Count 3.80 M/UL (4.20-5.40) L Hemoglobin 10.9 G/DL (12.0-16.0) L Hematocrit 34.0 % (37.0-47.0) L Mean Corpuscular Volume 90 FL (80-99) Mean Corpuscular Hemoglobin 28.7 PG (27.0-31.0) Mean Corpuscular Hemoglobin Concent 32.0 G/DL (32.0-36.0) Red Cell Distribution Width 14.8 % (11.6-14.8) Platelet Count 305 K/UL (150-450) Mean Platelet Volume 7.2 FL (6.5-10.1) Neutrophils (%) (Auto) % (45.0-75.0) Lymphocytes (%) (Auto) % (20.0-45.0) Monocytes (%) (Auto) % (1.0-10.0) Eosinophils (%) (Auto) % (0.0-3.0) Basophils (%) (Auto) % (0.0-2.0) Differential Total Cells Counted 100 Neutrophils % (Manual) 86 % (45-75) H Lymphocytes % (Manual) 10 % (20-45) L Monocytes % (Manual) 4 % (1-10) Eosinophils % (Manual) 0 % (0-3) Basophils % (Manual) 0 % (0-2) Band Neutrophils 0 % (0-8) Platelet Estimate Adequate Platelet Morphology Normal Hypochromasia 1+ Anisocytosis 1+ Erythrocyte Sedimentation Rate 29 MM/HR (0-30) Sodium Level 140 mEQ/L (135-145) Potassium Level 4.0 mEQ/L (3.4-4.9) Chloride Level 105 mEQ/L (98-107) Carbon Dioxide Level 26 mEQ/L (20-30) Anion Gap 9 (5-15) Blood Urea Nitrogen 16 mg/dL (7-23) Creatinine 0.7 mg/dL (0.5-0.9) Estimat Glomerular Filtration Rate > 60 mL/min (>60) Glucose Level 206 mg/dL (74-106) H Calcium Level 8.6 mg/dL (8.6-10.2) Phosphorus Level 2.7 mg/dL (2.5-4.8) Magnesium Level 2.2 mg/dL (1.7-2.5) Total Bilirubin < 0.2 mg/dL (0.0-1.2) Aspartate Amino Transf (AST/SGOT) 14 U/L (5-40) Alanine Aminotransferase (ALT/SGPT) 22 U/L (3-33) Alkaline Phosphatase 83 U/L (35-104) C-Reactive Protein, Quantitative 0.3 mg/dL (< 0.5) Total Protein 6.4 g/dL (6.6-8.7) L Albumin 3.8 g/dL (3.5-5.2) Globulin 2.6 g/dL Albumin/Globulin Ratio 1.4 (1.0-2.7) Current Medications Medications (Trade) Dose Ordered Sig/Shivam Route PRN Reason Start Time Stop Time Status Last Admin Dose Admin Acetaminophen (Tylenol) 650 mg Q4H PRN ORAL Mild Pain/Temp > 100.5 03/10/17 17:00 04/09/17 16:59 Albuterol/ Ipratropium (DuoNeb 0.5-3(2.5)mg/3ml) 3 ml Q4H PRN HHN Shortness of Breath 03/10/17 17:00 03/15/17 16:59 03/10/17 22:55 Carvedilol (Coreg) 12.5 mg Q12HR ORAL 03/10/17 21:00 04/09/17 20:59 03/12/17 08:47 Diphenhydramine HCl (Benadryl) 25 mg HSPRN PRN ORAL SLEEP/ITCHING 03/10/17 22:55 04/09/17 22:54 03/11/17 21:42 Gabapentin (Neurontin) 200 mg QHS ORAL 03/10/17 21:00 04/09/17 20:59 03/11/17 21:42 Levofloxacin (Levaquin) 100 ml @ 100 mls/hr Q24H IVPB 03/11/17 16:00 03/18/17 15:59 03/11/17 15:45 Losartan Potassium (Cozaar) 100 mg DAILY ORAL 03/11/17 09:00 04/10/17 08:59 03/12/17 08:45 Methylprednisolone Sodium Succinate (Solu-MEDROL) 60 mg EVERY 12 HOURS IV 03/11/17 21:00 04/10/17 20:59 03/12/17 08:43 Pantoprazole (Protonix) 40 mg BID ORAL 03/10/17 18:00 04/09/17 17:59 03/12/17 08:45 Potassium Chloride (K-Dur) 40 meq DAILY ORAL 03/11/17 09:00 04/10/17 08:59 03/12/17 08:44 Promethazine HCl/ Codeine (Phenergan with Codeine) 5 ml Q4H PRN ORAL For Cough 03/10/17 18:15 04/09/17 18:14 Kota Ceja M.D. Mar 12, 2017 14:55
[2017-03-12] MEDS ORDERED: PREDNISONE20 M1 PO (15:01)
[2017-03-12] MEDS ORDERED: PREDNISONE5 MG ORAL ×2 (15:03→15:04)
--- NOTE | 2017-03-12 15:33 | Pulmonology Progress Note ---
Assessment/Plan Problems: (1) Acute asthma exacerbation (2) Purulent bronchitis (3) Chronic obstructive pulmonary disease (COPD) Assessment/Plan decrease steroids on levofloxacine respiratory treatment check sputum dc today with oral steroids, fast taper Subjective ROS Limited/Unobtainable: No Constitutional: Reports: no symptoms HEENT: Repors: no symptoms Respiratory: Reports: no symptoms Cardiovascular: Reports: no symptoms Genitourinary: Reports: no symptoms Allergies: Coded Allergies: No Known Allergies (Unverified , 07/06/14) Objective Last 24 Hour Vital Signs Date Time Temp Pulse Resp B/P Pulse Ox O2 Delivery O2 Flow Rate FiO2 03/12/17 12:00 98.0 76 20 130/81 Room Air 03/12/17 08:47 83 16 Room Air 03/12/17 08:47 74 132/83 03/12/17 08:45 132/83 03/12/17 08:00 97.9 74 20 132/83 93 Room Air 03/12/17 04:00 97.9 70 20 130/73 97 Room Air 03/12/17 00:00 98.1 64 20 119/68 94 Room Air 03/11/17 21:41 70 132/79 03/11/17 20:50 97.9 70 20 132/79 96 Room Air 03/11/17 19:00 72 20 Room Air 03/11/17 15:47 98.1 73 21 137/77 95 Room Air Intake and Output 03/11/17 03/12/17 19:00 07:00 Intake Total 960 ml 250 ml Balance 960 ml 250 ml Intake Oral 960 ml 250 ml # Voids 4 2 # Bowel Movements 1 General Appearance: WD/WN HEENT: atraumatic, mucous membranes moist Respiratory/Chest: lungs clear, no respiratory distress Cardiovascular: regular rhythm Abdomen: soft, non tender, non distended Extremities: no clubbing Skin: no rash Microbiology Date/Time Source Procedure Growth Status 03/09/17 18:00 Blood Blood Culture - Preliminary NO GROWTH AFTER 48 HOURS Resulted 03/09/17 17:03 Blood Blood Culture - Preliminary NO GROWTH AFTER 48 HOURS Resulted 03/10/17 06:15 Sputum Gram Stain - Final Complete 03/10/17 06:15 Sputum Sputum Culture - Final NORMAL UPPER RESPIRATORY CESAR AT 48 ... Complete Laboratory Tests 03/12/17 06:00: White Blood Count 10.1, Red Blood Count 3.80L, Hemoglobin 10.9L, Hematocrit 34.0L, Mean Corpuscular Volume 90, Mean Corpuscular Hemoglobin 28.7, Mean Corpuscular Hemoglobin Concent 32.0, Red Cell Distribution Width 14.8, Platelet Count 305, Mean Platelet Volume 7.2, Neutrophils (%) (Auto) , Lymphocytes (%) ( Auto) , Monocytes (%) (Auto) , Eosinophils (%) (Auto) , Basophils (%) (Auto) , Differential Total Cells Counted 100, Neutrophils % (Manual) 86H, Lymphocytes % (Manual) 10L, Monocytes % (Manual) 4, Eosinophils % (Manual) 0, Basophils % ( Manual) 0, Band Neutrophils 0, Platelet Estimate Adequate, Platelet Morphology Normal, Hypochromasia 1+, Anisocytosis 1+, Erythrocyte Sedimentation Rate 29, Sodium Level 140, Potassium Level 4.0, Chloride Level 105, Carbon Dioxide Level 26, Anion Gap 9, Blood Urea Nitrogen 16, Creatinine 0.7, Estimat Glomerular Filtration Rate > 60, Glucose Level 206H, Calcium Level 8.6, Phosphorus Level 2.7, Magnesium Level 2.2, Total Bilirubin < 0.2, Aspartate Amino Transf (AST/ SGOT) 14, Alanine Aminotransferase (ALT/SGPT) 22, Alkaline Phosphatase 83, C- Reactive Protein, Quantitative 0.3, Total Protein 6.4L, Albumin 3.8, Globulin 2.6, Albumin/Globulin Ratio 1.4 Current Medications Medications (Trade) Dose Ordered Sig/Shivam Route PRN Reason Start Time Stop Time Status Last Admin Dose Admin Acetaminophen (Tylenol) 650 mg Q4H PRN ORAL Mild Pain/Temp > 100.5 03/10/17 17:00 04/09/17 16:59 Albuterol/ Ipratropium (DuoNeb 0.5-3(2.5)mg/3ml) 3 ml Q4H PRN HHN Shortness of Breath 03/10/17 17:00 03/15/17 16:59 03/10/17 22:55 Carvedilol (Coreg) 12.5 mg Q12HR ORAL 03/10/17 21:00 04/09/17 20:59 03/12/17 08:47 Diphenhydramine HCl (Benadryl) 25 mg HSPRN PRN ORAL SLEEP/ITCHING 03/10/17 22:55 04/09/17 22:54 03/11/17 21:42 Gabapentin (Neurontin) 200 mg QHS ORAL 03/10/17 21:00 04/09/17 20:59 03/11/17 21:42 Levofloxacin (Levaquin) 100 ml @ 100 mls/hr Q24H IVPB 03/11/17 16:00 03/18/17 15:59 03/11/17 15:45 Losartan Potassium (Cozaar) 100 mg DAILY ORAL 03/11/17 09:00 04/10/17 08:59 03/12/17 08:45 Methylprednisolone Sodium Succinate (Solu-MEDROL) 60 mg EVERY 12 HOURS IV 03/11/17 21:00 04/10/17 20:59 03/12/17 08:43 Pantoprazole (Protonix) 40 mg BID ORAL 03/10/17 18:00 04/09/17 17:59 03/12/17 08:45 Potassium Chloride (K-Dur) 40 meq DAILY ORAL 03/11/17 09:00 04/10/17 08:59 03/12/17 08:44 Promethazine HCl/ Codeine (Phenergan with Codeine) 5 ml Q4H PRN ORAL For Cough 03/10/17 18:15 04/09/17 18:14 KASHIF SMITH Mar 12, 2017 15:33
--- NOTE | 2017-03-15 11:38 | Discharge Summary ---
Discharge Summary Hospital Course Date of Admission Mar 09, 2017 at 17:36 Date of Discharge Mar 12, 2017 at 15:58 Admitting Diagnosis COPD/ chest pain HPI Liat Ramirez is a 71 year old female who was admitted on Mar 09, 2017 at 17: 36 for Chronic Obstructive Pulmonary Disorder, Chest Pain Hospital Course dc summary #[id number] Discharge Medications Continued Medications: Albuterol Sulfate* (Albuterol Sulfate Mdi*) 8.5 Gm Hfa.aer.ad 2 PUFF INH Q4H, #1 INH 1 Refill Alendronate Sodium* (Fosamax*) 70 Mg Tablet 70 MG ORAL ONCE A WEEK, TAB Take with 6-8 oz water at least 30 minutes before first food; Sit upright for at least 30min after medication administration Carvedilol* (Carvedilol*) 6.25 Mg Tablet 6.25 MG ORAL BID, TAB Diclofenac Sod* (Voltaren*) 75 Mg Tablet.dr 75 MG ORAL BID, TAB Diphenhydramine Hcl* (Benadryl*) 25 Mg Capsule 25 MG ORAL Q6H PRN for Itching/Pruritis, #30 CAP Fluticasone Propionate (Flonase Allergy Relief) 9.9 Ml [place].susp 1 ML NS DAILY, #10 ML Gabapentin* (Gabapentin*) 100 Mg Capsule 200 MG ORAL QHS, CAP Levofloxacin* (Levaquin*) 500 Mg Tablet 500 MG ORAL DAILY for 5 Days, TAB Losartan Potassium* (Losartan Potassium*) 50 Mg Tablet 100 MG ORAL DAILY, TAB Methotrexate Sodium* (Methotrexate*) 2.5 Mg Tablet 20 MG PO ONCE A WEEK, TAB Omeprazole (Omeprazole) 20 Mg Capsule.dr 20 MG ORAL DAILY, CAP Prednisone (Prednisone) 5 Mg/5 Ml Solution 10 MG ORAL DAILY for 3 Days, #10 TAB 0 Refills Discharge Condition Upon Discharge: stable Discharge Disposition Patient was discharged to Home with Home Health(06) Discharge Diagnoses: Discharge Instructions Discharge Instructions Special Instructions I have been assigned to complete a D/C Summary on this account. I was not involved in the patient management Wanda Byrd NP ([place]) Mar 15, 2017 11:38
--- NOTE | 2017-03-16 01:00 | Discharge Summary 2 SIG ---
DATE OF ADMISSION: 03/09/2017 DATE OF DISCHARGE: 03/12/2017 REASON FOR ADMISSION: 71-year-old female with history of hypertension and asthma, presented to emergency room with complaints of shortness of breath and chest tightness for one month. The patient reported inability to take a deep breath. She denied fevers or chills. She reported cough, productive with yellowish thick phlegm. She denied chest pain. No sick contacts or recent traveling. The patient was afebrile. Pulse oximetry on two liters of oxygen was 94%. Chest x-ray revealed bilateral atelectasis versus consolidation. No leukocytosis. Stable hemoglobin and hematocrit. Electrolytes stable. Lactate within normal limits. Troponin negative. EKG revealed normal sinus rhythm. No acute changes. The patient was started on empiric antibiotics and admitted for further management. ADMITTING DIAGNOSES: Include: 1. Asthma exacerbation. 2. Purulent bronchitis. 3. Possible pneumonia. 4. Chronic obstructive pulmonary disease. 5. Hypertension. HOSPITAL STAY: The patient was admitted to medical/surgical floor. Pulmonary and Infectious Disease consults were requested. The patient was started on supplemental oxygen to keep pulse oximetry above 92%. Pulmonary toilet provided around the clock and as needed. The patient was started on IV steroids, which were tapered and changed to oral upon discharge. The patient was started on empiric antibiotics. Sputum culture was negative. Blood cultures were negative. Antitussive provided as needed. Venous duplex of bilateral lower extremities was negative. The patient noted to have symptoms of allergic rhinitis. The patient was on antihistamine and Infectious Disease recommended to follow up with ENT as outpatient. The patient has at home Flonase nasal spray, but not complaint with it. Blood pressure was managed with ARB and beta-dennis, and was stable. GI prophylaxis provided. The patient was stable for discharge on oral steroids for additional few days as outlined in medication reconciliation list. Followup with primary medical doctor next week. DISCHARGE DIAGNOSES: 1. Asthma exacerbation. 2. Purulent bronchitis. 3. Chronic obstructive pulmonary disease. 4. Hypertension. 5. Allergic rhinitis. DISCHARGE MEDICATIONS: See medication reconciliation list. DISCHARGE INSTRUCTIONS: The patient was discharged home with home health services. Followup with medical doctor next week. Reinforced compliance with medication regimen, including nasal steroids. Efren Michael M.D. I have been assigned to dictate discharge summary on this account and I was not involved in the patient's management. Wanda Griggsben NOnealPOneal DR: Jeff JOB#: [id number] CC: JACKELIN
== END 2017-03-12 15:58 | disposition home health service (06) | DRG 203 ==
LOC: EMR 17:09 → 2E 17:36 → EDBEDREQ 20:03 → 2E 21:02 → 4E 03-10 16:21
DX: J45.901 Unspecified asthma with (acute) exacerbation (principal); G62.9 Polyneuropathy, unspecified; J44.9 Chronic obstructive pulmonary disease, unspecified; I10 Essential (primary) hypertension; E87.6 Hypokalemia; J30.9 Allergic rhinitis, unspecified; K21.9 Gastro-esophageal reflux disease without esophagitis; M81.0 Age-related osteoporosis without current pathological fracture; E86.0 Dehydration; J41.1 Mucopurulent chronic bronchitis
CPT/HCPCS: 36415; 71010; 80053; 81003; 82550; 82553; 83605; 83735; 83880; 84100; 84484; 85007; 85025; 85651; 86140; 87040; 87070; 87205; 90732; 93005; 93970; 94640; 94664; J7620; J8499

== ENCOUNTER 2017-11-09 14:14 | Emergency (ER) | payer MEDICARE, MEDICAID ==
[~2017-11-09] VITALS: Ht 154.9 cm; Wt 72.6 kg
[~2017-11-09 14:14] MED LIST changes: +ALENDRONATE SOD70 MG ORAL; +BENADRYL25 M3 PO; +CARVEDILOL6.25 MG ORAL; +DICLOFENAC SODI75 MG ORAL; +GABAPENTIN100 MG ORAL; +IBUPROFEN600 MG ORAL; +LEVAQUIN500 MG ORAL; +LOSARTAN POTASS50 MG ORAL; +OMEPRAZOLE20 M2 ORAL; +PREDNISONE20 M1 PO; +PREDNISONE5 MG ORAL
[2017-11-09 14:24] VITALS: BP 152/75
[2017-11-09] MEDS ORDERED: CYCLOBENZAPRINE10 MG ORAL (14:48)
--- NOTE | 2017-11-09 14:53 | Emergency Room Report ---
History of Present Illness General Chief Complaint: Pain Source: Patient, Medical Record Present Illness HPI 72yo F presents with many months of right jaw pain Seen by her primary doctor in place on naproxen Pain worsening now so decided to come in. Denies fevers, denies neck stiffness, denies vision complaints. Reports she's had vision exams as well as x-rays of her jaw which revealed the pain as originating in her temporomandibular joint. Her primary care doctor, Dr. Padgett, prescribed the naproxen She has not seen other doctors for this yet. She reports is worse sometimes when she eats and chews. She is also seen a dentist and was told that there is nothing wrong with her teeth. She denies pain to her temporal area Allergies: Coded Allergies: No Known Allergies (Unverified , 07/06/14) Patient History Past Medical History: see triage record Reviewed Nursing Documentation: PMH: Agreed; PSxH: Agreed Nursing Documentation-PMH Past Medical History: No History, Except For Hx Cardiac Problems: Yes Hx Hypertension: Yes Hx Asthma: Yes Hx COPD: Yes Hx Cancer: No Hx Gastrointestinal Problems: Yes Hx Neurological Problems: No Review of Systems All Other Systems: negative except mentioned in HPI Physical Exam Vital Signs Date Time Temp Pulse Resp B/P (MAP) Pulse Ox O2 Delivery O2 Flow Rate FiO2 11/09/17 14:20 98.2 84 18 152/75 94 Room Air 98.2 Sp02 EP Interpretation: reviewed, normal General Appearance: no apparent distress, alert, non-toxic Head: normocephalic Eyes: bilateral eye normal inspection, bilateral eye PERRL, bilateral eye EOMI ENT: normal ENT inspection, hearing grossly normal, normal pharynx, no angioedema, normal voice, TMs + canals normal, uvula midline, moist mucus membranes, other - No temporal tenderness, no malocclusion, normal dentition, no reproducility with tapping pre-auricular area Neck: normal inspection, full range of motion, supple, thyroid normal, supple/ symm/no masses Respiratory: chest non-tender, lungs clear, normal breath sounds, chest symmetrical, palpation of chest normal Cardiovascular #1: normal peripheral pulses, regular rate, rhythm Cardiovascular #2: 2+ radial (R), 2+ radial (L) Gastrointestinal: normal inspection, non tender, soft, no mass, no guarding, no rebound Rectal: deferred Genitourinary: normal inspection, no CVA tenderness Musculoskeletal: back normal, gait/station normal, normal range of motion, non- tender, no calf tenderness Neurologic: alert, responsive, tire buffer III-XII nml as tested, motor strength/tone normal, sensory intact, speech normal Psychiatric: judgement/insight normal, memory normal, mood/affect normal, no suicidal/homicidal ideation Skin: normal color, no rash, warm/dry, normal turgor Lymphatic: no adenopathy Medical Decision Making Reaction to Intervention: No change Diagnostic Impression: Primary Impression: TMJ (temporomandibular joint disorder) ER Course Patient with clinical syndrome consistent with temporomandibular joint disorder Will try muscle relaxants and refer her to a TMJ specialist I looked up a [facility] [place] provider and provided this referral information Recommend she try the muscle relaxants and follow up with her primary doctor as well for possible TCA therapy Last Vital Signs Date Time Temp Pulse Resp B/P (MAP) Pulse Ox O2 Delivery O2 Flow Rate FiO2 11/09/17 14:24 98.2 84 18 152/75 94 Room Air 98.2 Disposition: HOME, SELF-CARE Condition: Stable Scripts Cyclobenzaprine Hcl* (FLEXERIL*) 10 Mg Tablet 10 MG ORAL THREE TIMES A DAY, #14 TAB Prov: FAISAL ROMERO M.D 11/09/17 Referrals: [facility] FAISAL ROMERO M.D Nov 09, 2017 14:53
[2017-11-09] MEDS ORDERED: Cyclobenzaprine 10mg Tab ORAL ONE (15:00)
[2017-11-09] MEDS ORDERED: Ketorolac 30mg Inj IM ONE (15:00)
[2017-11-09 15:54] VITALS: BP 149/72
== END 2017-11-09 15:56 | disposition home or self-care (01) ==
LOC: EMR 15:25
DX: M26.601 Right temporomandibular joint disorder, unspecified (principal); I10 Essential (primary) hypertension; J44.9 Chronic obstructive pulmonary disease, unspecified
CPT/HCPCS: 96372; 99283; J1885

== ENCOUNTER 2018-03-04 20:55 | Emergency (ER) | payer MEDICARE, MEDICAID ==
[~2018-03-04] VITALS: Ht 152.4 cm; Wt 69.4 kg
[~2018-03-04 20:55] MED LIST changes: +CYCLOBENZAPRINE10 MG ORAL
[2018-03-04] MEDS ORDERED: LORazepam Inj 2mg/ml 1ml IV ONE ×2 (21:45→23:00)
--- NOTE | 2018-03-04 21:45 | Emergency Room Report ---
History of Present Illness General Chief Complaint: Dyspnea/Respdistress Source: Patient, Family Member Present Illness HPI Is a 72-year-old female with a history high blood pressure. She also has history anxiety. She presents with chief complaint of feeling short of breath for a week. This is a frequent thing per her daughter. Denies any nausea vomiting. Denies any chest pain. Exertion doesn't make it better or worse. Stress made it worse. No cough or fever. [place] that she can't catch her breath. Allergies: Coded Allergies: No Known Allergies (Unverified , 07/06/14) Patient History Past Medical History: see triage record, old chart reviewed Past Surgical History: other Pertinent Family History: none Social History: Denies: smoking Last Menstrual Period: NA Now: No Immunizations: other Reviewed Nursing Documentation: PMH: Agreed; PSxH: Agreed Nursing Documentation-PMH Hx Cardiac Problems: Yes Hx Hypertension: Yes Hx Asthma: Yes Hx COPD: Yes Hx Cancer: No Hx Gastrointestinal Problems: Yes Hx Neurological Problems: No Review of Systems Eye: Denies: eye pain, blurred vision ENT: Denies: ear pain, nose congestion, throat swelling Respiratory: Reports: shortness of breath; Denies: cough Cardiovascular: Denies: chest pain, palpitations Gastrointestinal: Denies: abdominal pain, diarrhea, nausea, vomiting Musculoskeletal: Denies: back pain, joint pain Skin: Denies: rash Neurological: Denies: headache, numbness Endocrine: Denies: increased thirst, increased urine Hematologic/Lymphatic: Denies: easy bruising All Other Systems: negative except mentioned in HPI Physical Exam Vital Signs Date Time Temp Pulse Resp B/P (MAP) Pulse Ox O2 Delivery O2 Flow Rate FiO2 03/04/18 21:09 98.0 68 18 154/86 99 Room Air 98.1 vitals with htn Sp02 EP Interpretation: reviewed, normal General Appearance: well appearing, no apparent distress, alert Head: normocephalic, atraumatic Eyes: bilateral eye PERRL, bilateral eye EOMI ENT: hearing grossly normal, normal pharynx Neck: full range of motion, supple, no meningismus Respiratory: chest non-tender, lungs clear, normal breath sounds Cardiovascular #1: regular rate, rhythm, no murmur Gastrointestinal: normal bowel sounds, non tender, no mass, no organomegaly, no bruit, non-distended Musculoskeletal: back normal, gait/station normal, normal range of motion Psychiatric: anxious Skin: warm/dry Medical Decision Making Diagnostic Impression: Primary Impression: Dyspnea Qualified Codes: R06.00 - Dyspnea, unspecified Additional Impression: Anxiety ER Course Patient with dyspnea. No wheezing. No evidence of asthma, ACS, PE, dissection to name a few. She is not tachypneic or tachycardic. Her oxygenation is normal. She felt better after Ativan. Lab Results Impression labs unremarkable EKG Diagnostic Results Rate: normal Rhythm: NSR ST Segments: no acute changes Rhythm Strip Diag. Results Rhythm Strip Time: 21:45 EP Interpretation: yes Rate: 60 Rhythm: NSR, no PVC's, no ectopy Chest X-Ray Diagnostic Results Chest X-Ray Diagnostic Results : Chest X-Ray Ordered: Yes # of Views/Limited/Complete: 1 View Indication: Shortness of Breath EP Interpretation: Yes Interpretation: no consolidation, no effusion, no pneumothorax, no acute cardiopulmonary disease Impression: No acute disease Electronically Signed by: Ramy Coppola MD Last Vital Signs Date Time Temp Pulse Resp B/P (MAP) Pulse Ox O2 Delivery O2 Flow Rate FiO2 03/04/18 21:37 68 18 Room Air 03/04/18 21:09 98.0 154/86 99 98.1 Status: improved Disposition: HOME, SELF-CARE Condition: Stable Scripts Lorazepam* (ATIVAN*) 1 Mg Tablet 1 MG ORAL THREE TIMES A DAY, #30 TAB Prov: RAMY COPPOLA M.D. 03/04/18 Referrals: NOT CHOSEN IPA/,REFERRING (PCP) Additional Instructions: Follow-up with your doctor in 2-3 days. Return if symptom worsen. RAMY COPPOLA M.D. Mar 04, 2018 21:45
[2018-03-04 22:05] LABS: EOSINOPHILS % (AUTO) 3.9 % (0.0-3.0); HEMATOCRIT 35.2 % (37.0-47.0); HEMOGLOBIN 11.9 G/DL (12.0-16.0); LYMPHOCYTES % (AUTO) 27.3 % (20.0-45.0); MEAN CORPUSCULAR VOLUME 87 FL (80-99); MONOCYTES % (AUTO) 9.7 % (1.0-10.0); NEUTROPHILS % (AUTO) 58.2 % (45.0-75.0); PLATELET COUNT 236 K/UL (150-450); RED BLOOD COUNT 4.06 M/UL (4.20-5.40); RED CELL DISTRIBUTION WIDTH 13.5 % (11.6-14.8); WHITE BLOOD COUNT 5.9 K/UL (4.8-10.8)
[2018-03-04 22:22] LABS: ANION GAP 10 mmol/L (5-15); BLOOD UREA NITROGEN 17 mg/dL (7-18); CALCIUM 8.7 MG/DL (8.5-10.1); CARBON DIOXIDE 29 MMOL/L (21-32); CHLORIDE 102 MMOL/L (98-107); CREATININE 0.8 MG/DL (0.55-1.30); POTASSIUM 3.7 MMOL/L (3.5-5.1); SODIUM 141 MMOL/L (136-145)
--- NOTE | 2018-03-04 22:22 | Diagnostic Imaging Report ---
EXAM: XR Chest, 1 View CLINICAL HISTORY: SOB TECHNIQUE: Frontal view of the chest. COMPARISON: 03/19/17. FINDINGS: Lungs: Unremarkable. No consolidation. Pleural space: Unremarkable. No pneumothorax. Heart: Unremarkable. No cardiomegaly. Mediastinum: Tortuous aorta. Bones/joints: Degenerative changes. IMPRESSION: No evidence of acute pulmonary disease.
[2018-03-04 22:35] LABS: ALANINE AMINOTRANSFERASE 27 U/L (12-78); ALBUMIN/GLOBULIN RATIO 1.1 (1.0-2.7); ALKALINE PHOSPHATASE 91 U/L (46-116); ASPARTATE AMINO TRANSFERASE 21 U/L (15-37); BILIRUBIN,TOTAL 0.4 MG/DL (0.2-1.0); CKMB 0.8 NG/ML (0.0-3.6); CREATINE KINASE 103 U/L (26-308)
[2018-03-04] MEDS ORDERED: LORazepam Inj 2mg/ml 1ml ONE (22:49)
[2018-03-04] MEDS ORDERED: ATIVAN1 MG ORAL (22:56)
[2018-03-04 23:03] VITALS: BP 154/86
--- NOTE | 2018-03-06 14:21 | Cardiology Report ---
APPROVED REPORT EKG Measurement Heart [id number] Normal sinus rhythm Left axis deviation Incomplete right bundle branch block Abnormal ECG
== END 2018-03-04 23:04 | disposition home or self-care (01) ==
LOC: EMR 21:43
DX: R06.00 Dyspnea, unspecified (principal)
CPT/HCPCS: 36415; 71045; 80053; 82550; 82553; 84484; 85025; 93005; 96374; 96376; 99284

== ENCOUNTER 2018-11-04 15:20 | Emergency (ER) | payer MEDICARE, MEDICAID ==
[~2018-11-04] VITALS: Ht 160 cm; Wt 72.6 kg
[~2018-11-04 15:20] MED LIST changes: +ATIVAN1 MG ORAL
[2018-11-04 15:45] VITALS: BP 138/81
--- NOTE | 2018-11-04 15:47 | NUR ---
ED Nurse Note:pt. came from home with c/o chest/lungs pain when breathing since yesterday SOB, hx of asthma, VSS, no signs of respiratory distress now
--- NOTE | 2018-11-04 16:10 | Emergency Room Report ---
History of Present Illness General Chief Complaint: Chest Pain Source: Patient, Medical Record Present Illness HPI This is a 73-year-old female with a history of hypertension and anxiety, complains of having some difficult breathing since yesterday. She took her inhaler with no relief. She also complains of some chest pain since yesterday that is intermittent as well. No radiation. No nausea or vomiting. No radiation to the back. She states it is very similar to her previous anxiety. She denies any coughing or fever. Allergies: Coded Allergies: No Known Allergies (Unverified , 07/06/14) Patient History Past Medical History: HTN Pertinent Family History: HTN Nursing Documentation-[facility] Past Medical History: No History, Except For Hx Cardiac Problems: Yes Hx Hypertension: Yes Hx Asthma: Yes Hx COPD: Yes Hx Cancer: No Hx Gastrointestinal Problems: Yes Hx Neurological Problems: No Review of Systems All Other Systems: limited Physical Exam Vital Signs Date Time Temp Pulse Resp B/P (MAP) Pulse Ox O2 Delivery O2 Flow Rate FiO2 11/04/18 15:28 97.7 74 14 147/81 99 Room Air General Appearance: well appearing, no apparent distress Head: normocephalic, atraumatic ENT: hearing grossly normal, normal voice Neck: full range of motion, supple Respiratory: no respiratory distress, speaking full sentences Gastrointestinal: normal bowel sounds, non tender, soft Musculoskeletal: no calf tenderness Neurologic: alert, normal gait Psychiatric: mood/affect normal Skin: no rash Medical Decision Making Diagnostic Impression: Primary Impression: Chest pain ER Course Patient presents significant complexity of risk requiring multiple bedside evaluations. Particularly very concerned about a possibility of acute cord syndrome, pneumonia, pneumothorax, electrolyte imbalance, arrhythmia. I also considered pulmonary embolism. The patient is not tachypnea, tachycardic, hypoxic. I also did consider asthma exacerbation. However, the patient has no wheezing. She is alert. She has some anxiety. She was given Xanax with near complete resolution of symptoms. Reexamined the patient that her exam is normal with normal vital signs. The patient will be discharged home with very close follow-up with her primary care physician and to return if any change in symptoms or worsening symptoms. Laboratory Tests Test 11/04/18 16:20 White Blood Count 5.3 K/UL (4.8-10.8) Red Blood Count 3.84 M/UL (4.20-5.40) L Hemoglobin 10.9 G/DL (12.0-16.0) L Hematocrit 33.1 % (37.0-47.0) L Mean Corpuscular Volume 86 FL (80-99) Mean Corpuscular Hemoglobin 28.3 PG (27.0-31.0) Mean Corpuscular Hemoglobin Concent 32.9 G/DL (32.0-36.0) Red Cell Distribution Width 14.3 % (11.6-14.8) Platelet Count 235 K/UL (150-450) Mean Platelet Volume 5.8 FL (6.5-10.1) L Neutrophils (%) (Auto) 58.0 % (45.0-75.0) Lymphocytes (%) (Auto) 26.0 % (20.0-45.0) Monocytes (%) (Auto) 10.3 % (1.0-10.0) H Eosinophils (%) (Auto) 4.9 % (0.0-3.0) H Basophils (%) (Auto) 0.8 % (0.0-2.0) Sodium Level 141 MMOL/L (136-145) Potassium Level 3.5 MMOL/L (3.5-5.1) Chloride Level 103 MMOL/L (98-107) Carbon Dioxide Level 29 MMOL/L (21-32) Anion Gap 9 mmol/L (5-15) Blood Urea Nitrogen 15 mg/dL (7-18) Creatinine 0.7 MG/DL (0.55-1.30) Estimate Glomerular Filtration Rate mL/min (>60) Glucose Level 193 MG/DL (74-106) H Calcium Level 8.6 MG/DL (8.5-10.1) Total Bilirubin 0.4 MG/DL (0.2-1.0) Aspartate Amino Transferase (AST) 20 U/L (15-37) Alanine Aminotransferase (ALT) 25 U/L (12-78) Alkaline Phosphatase 95 U/L (46-116) Troponin I 0.000 ng/mL (0.000-0.056) Total Protein 6.7 G/DL (6.4-8.2) Albumin 3.4 G/DL (3.4-5.0) Globulin 3.3 g/dL Albumin/Globulin Ratio 1.0 (1.0-2.7) EKG Diagnostic Results EKG Time: 16:10 Rate: normal Rhythm: NSR ST Segments: no acute changes Chest X-Ray Diagnostic Results Chest X-Ray Diagnostic Results : Chest X-Ray Ordered: Yes # of Views/Limited/Complete: 1 View Indication: Chest Pain EP Interpretation: Yes Interpretation: no acute cardiopulmonary disease Last Vital Signs Date Time Temp Pulse Resp B/P (MAP) Pulse Ox O2 Delivery O2 Flow Rate FiO2 11/04/18 15:45 97.7 77 14 138/81 99 Room Air Disposition: HOME, SELF-CARE Condition: Stable Scripts Alprazolam* (XANAX*) 0.25 Mg Tablet 0.25 MG ORAL TID PRN for For Anxiety, #20 TAB Prov: GARY THOMPSON 11/04/18 Patient Instructions: Nonspecific Chest Pain GARY THOMPSON Nov 04, 2018 16:10
--- NOTE | 2018-11-04 16:23 | NUR ---
ED Nurse Note:blood sent to labs, pt. had chest x-ray done
[2018-11-04 16:51] LABS: ANION GAP 9 mmol/L (5-15); BASOPHILS % (AUTO) 0.8 % (0.0-2.0); BLOOD UREA NITROGEN 15 mg/dL (7-18); CALCIUM 8.6 MG/DL (8.5-10.1); CARBON DIOXIDE 29 MMOL/L (21-32); CHLORIDE 103 MMOL/L (98-107); CREATININE 0.7 MG/DL (0.55-1.30); EOSINOPHILS % (AUTO) 4.9 % (0.0-3.0); HEMATOCRIT 33.1 % (37.0-47.0); HEMOGLOBIN 10.9 G/DL (12.0-16.0); MEAN CORPUSCULAR VOLUME 86 FL (80-99); MONOCYTES % (AUTO) 10.3 % (1.0-10.0); PLATELET COUNT 235 K/UL (150-450); POTASSIUM 3.5 MMOL/L (3.5-5.1); RED BLOOD COUNT 3.84 M/UL (4.20-5.40); RED CELL DISTRIBUTION WIDTH 14.3 % (11.6-14.8); SODIUM 141 MMOL/L (136-145); WHITE BLOOD COUNT 5.3 K/UL (4.8-10.8)
[2018-11-04 16:56] LABS: ALANINE AMINOTRANSFERASE 25 U/L (12-78); ALBUMIN 3.4 G/DL (3.4-5.0); ALKALINE PHOSPHATASE 95 U/L (46-116); ASPARTATE AMINO TRANSFERASE 20 U/L (15-37); BILIRUBIN,TOTAL 0.4 MG/DL (0.2-1.0)
[2018-11-04] MEDS ORDERED: FOLIC ACID1 MG ORAL (16:56)
[2018-11-04] MEDS ORDERED: ASPIR 8181 MG ORAL (16:58)
[2018-11-04] MEDS ORDERED: ATORVASTATIN CA40 MG ORAL (16:58)
[2018-11-04] MEDS ORDERED: PYRIDOXINE HCL50 MG ORAL (16:59)
[2018-11-04] MEDS ORDERED: NORCO 10/3251 EA ORAL (16:59)
[2018-11-04] MEDS ORDERED: ALPRAZolam 0.5mg tab ORAL ONE (17:00)
--- NOTE | 2018-11-04 17:31 | Diagnostic Imaging Report ---
Indication: Cough Technique: One view of the chest Comparison: 03/04/2018 Findings: The heart size is normal. The aorta is tortuous. Lungs and pleural spaces are clear. Impression: No acute process
[2018-11-04 17:51] VITALS: BP 143/70
--- NOTE | 2018-11-04 17:52 | NUR ---
ER DISCHARGE NOTE: Patient is cleared to be discharged per ERMD, pt is aox4, on room air, with stable vital signs. pt was given dc and prescription instructions, pt was able to verbalize understanding, pt id band and iv site removed without complications. pt is able to ambulate with cane and family member. pt took all belongings.
[2018-11-04] MEDS ORDERED: ALPRAZOLAM0.25 MG ORAL (17:53)
[2018-11-04 18:05] VITALS: BP 143/70
== END 2018-11-04 18:22 | disposition home or self-care (01) ==
LOC: EMR 15:58
DX: R07.9 Chest pain, unspecified (principal); J44.9 Chronic obstructive pulmonary disease, unspecified; I10 Essential (primary) hypertension
CPT/HCPCS: 36415; 71046; 80053; 84484; 85025; 99284

== ENCOUNTER 2019-02-03 13:06 | Emergency (ER) | payer MEDICARE, MEDICAID ==
[~2019-02-03] VITALS: Ht 157.5 cm; Wt 71.7 kg
[~2019-02-03 13:06] MED LIST changes: +ALPRAZOLAM0.25 MG ORAL; +ASPIR 8181 MG ORAL; +ATORVASTATIN CA40 MG ORAL; +NORCO 10/3251 EA ORAL; +PYRIDOXINE HCL50 MG ORAL
[2019-02-03 13:45] VITALS: BP 137/71
--- NOTE | 2019-02-03 13:53 | Emergency Room Report ---
History of Present Illness General Chief Complaint: Abdominal Pain Source: Medical Record (Jessika Norton) Present Illness HPI 73-year-old female with history of gastritis and osteoporosis here complaining of 2 months of epigastric pain rating is 7 out of 10 and intermittent. Patient also complains of flushness. Patient has been seen by her primary care physician has done endoscopy but diagnosed with gastritis has had stool culture ova and parasite however does not recall whether she was tested for H. pylori testing. Patient reports that she eats food with lots of fiber however denies drinking alcohol and smoking. Patient is currently on methotrexate as well as alendronate however reports that she takes them a minimal amount of water and does not sit upright. Denies nausea vomiting, acid reflux. Denies diarrhea, constipation, blood in stool. Denies chest pain, palpitation, shortness of breath, dizziness, and all other associated symptoms. Her primary care physician has put on Zantac. (Jessika Norton) Allergies: Coded Allergies: No Known Allergies (Unverified , 07/06/14) Patient History Past Medical History: see triage record Past Surgical History: unable to obtain Pertinent Family History: none Now: No Immunizations: UTD Reviewed Nursing Documentation: PMH: Agreed; PSxH: Agreed (Jessika Norton) Nursing Documentation-PMH Past Medical History: No History, Except For Hx Cardiac Problems: Yes Hx Hypertension: Yes Hx Asthma: Yes Hx COPD: Yes Hx Cancer: No Hx Gastrointestinal Problems: Yes Hx Neurological Problems: No (Jessika Norton) Review of Systems All Other Systems: negative except mentioned in HPI (Jessika Norton) Physical Exam Vital Signs Date Time Temp Pulse Resp B/P (MAP) Pulse Ox O2 Delivery O2 Flow Rate FiO2 02/03/19 13:12 98.4 74 18 131/83 (99) 94 Room Air Sp02 EP Interpretation: reviewed, normal General Appearance: normal inspection, well appearing, no apparent distress Head: normocephalic, atraumatic Eyes: bilateral eye normal inspection, bilateral eye PERRL ENT: normal ENT inspection, hearing grossly normal Neck: normal inspection, full range of motion, supple, no bony tend Respiratory: normal inspection, chest non-tender, lungs clear, no wheezing Cardiovascular #1: normal inspection, normal peripheral pulses, regular rate, rhythm, no murmur Gastrointestinal: normal inspection, normal bowel sounds, non tender, soft, no organomegaly, no guarding, no hernia Genitourinary: no CVA tenderness Musculoskeletal: normal inspection, back normal Neurologic: normal inspection, alert, oriented x3 Psychiatric: normal inspection, judgement/insight normal Skin: no rash Lymphatic: normal inspection, no adenopathy (Jessika Norton) Medical Decision Making PA Attestation All my diagnosis and treatment plans were reviewed ad discussed with my supervising physician Dr. Diaz (Jessika Norton) Medicare Attestation The history of Liat Ramirez has been reviewed and management options for her have been examined and discussed by Perry Diaz. I have personally examined and interviewed the patient. (Perry Diaz MD) Diagnostic Impression: Primary Impression: Acute gastritis ER Course 73-year-old female with history of gastritis and osteoporosis here complaining of 2 months of epigastric pain rating is 7 out of 10 and intermittent. Patient also complains of flushness. Patient has been seen by her primary care physician has done endoscopy but diagnosed with gastritis has had stool culture ova and parasite however does not recall whether she was tested for H. pylori testing. Patient reports that she eats food with lots of fiber however denies drinking alcohol and smoking. Patient is currently on methotrexate as well as alendronate however reports that she takes them a minimal amount of water and does not sit upright. Denies nausea vomiting, acid reflux. Denies diarrhea, constipation, blood in stool. Denies chest pain, palpitation, shortness of breath, dizziness, and all other associated symptoms. Her primary care physician has put on Zantac. Ddx considered but are not limited to: appendicitis, cholycisitis, gastritis, gasthroentritis, UTI, pylonephritis, SBO, diverticulitis, influenza with GI manifestation, ID, Vital signs: are WNL, pt. is afebrile H&PE are most consistent with: Acute gastritis ORDERS: EKG, famotidine ED INTERVENTIONS: None required at this time. DISCHARGE: At this time pt. is stable for d/c to home. Will provide printed patient care instructions, and any necessary prescriptions. Care plan and follow up instructions have been discussed with the patient prior to discharge. I advised the patient to sit upright and take both alendronate and methotrexate with lots of water she needs to stay seated for 30 minutes post taking those medications as the increase of her symptoms and causing esophagitis. Patient to refrain from taking PPI. Patient to follow-up with her primary care physician for referral to gastroenterology. Patient is stable and comfortable talking to me. Advised her to reduce taking high fiber intake as well as her primary care physician tested her for H. pylori. Return to the emergency room if worsening symptoms. After consulting with I decided that this is a chronic issue and does not need any further imaging has already been diagnosed by pcp and GI (Jessika Norton) EKG Diagnostic Results Rate: normal Rhythm: NSR ST Segments: no acute changes (Jessika Norton) Last Vital Signs Date Time Temp Pulse Resp B/P (MAP) Pulse Ox O2 Delivery O2 Flow Rate FiO2 02/03/19 13:12 98.4 74 18 131/83 (99) 94 Room Air (Jessika Norton) Disposition: HOME, SELF-CARE Condition: Stable Scripts Famotidine (FAMOTIDINE) 40 Mg Tablet 40 MG ORAL EVERY 12 HOURS for 30 Days, #60 TAB 0 Refills Prov: Jessika Norton 02/03/19 Referrals: NON PHYSICIAN (PCP) Patient Instructions: Gastritis, Adult Additional Instructions: When taking alendronate and methotrexate sit up straight and wait 30 minutes after intake drink with a lot of water. Have primary care physician ordered H. pylori testing take ranitidine as prescribed avoid eating spicy, acidic food and greasy food. Jessika Norton Feb 03, 2019 13:53 Perry Diaz MD Feb 04, 2019 06:47
--- NOTE | 2019-02-03 13:54 | NUR ---
ED Nurse Note: pt walked in due to upper abdominal pain accompanied by nausea, denies vomiting and diarrhea. opt stated it has been happening to him for the last 2-3 months, it comes and go. it got worses 3 days ago after eating beans and tortilla. seen by mamta merchant. will continue to monitor.
[2019-02-03] MEDS ORDERED: VENTOLIN HFA18 GM INH (13:56)
[2019-02-03] MEDS ORDERED: TRAMADOL HCL50 MG ORAL (13:56)
[2019-02-03] MEDS ORDERED: HUMIRA40 MG/0.2 SUBQ (13:56)
[2019-02-03] MEDS ORDERED: ZANTAC150 MG ORAL (13:56)
[2019-02-03] MEDS ORDERED: FAMOTIDINE40 MG ORAL (13:57)
[2019-02-03 14:07] VITALS: BP 137/71
--- NOTE | 2019-02-03 14:07 | NUR ---
ER DISCHARGE NOTE: Patient is cleared to be discharged per ERMD, pt is aox4, on room air, with stable vital signs. pt was given dc and prescription instructions, pt was able to verbalize understanding, pt id band and iv site removed without complications. pt is able to ambulate with steady gait. pt took all belongings.
== END 2019-02-03 14:13 | disposition home or self-care (01) ==
LOC: EMR 13:25
DX: K29.00 Acute gastritis without bleeding (principal); I10 Essential (primary) hypertension; J45.909 Unspecified asthma, uncomplicated; J44.9 Chronic obstructive pulmonary disease, unspecified; I51.9 Heart disease, unspecified
CPT/HCPCS: 93005; 99282

== ENCOUNTER 2019-11-18 20:52 | Emergency (ER) | payer MEDICARE, MEDICAID ==
[~2019-11-18] VITALS: Ht 160 cm; Wt 65.8 kg
[~2019-11-18 20:52] MED LIST changes: +FAMOTIDINE40 MG ORAL; +HUMIRA40 MG/0.2 SUBQ; +TRAMADOL HCL50 MG ORAL; +VENTOLIN HFA18 GM INH; +ZANTAC150 MG ORAL
[2019-11-18 21:10] VITALS: BP 152/81
--- NOTE | 2019-11-18 21:10 | NUR ---
ED Nurse Note: PT WALKED IN TO ED FROM HOME C/O SOB WITH HX ASTHMA X1WK. COUGH IS NON PRODUCTIVE. GETTING WORSE DURING EXERTION. PER PATIENT, SHE IS USING INHALER BUT RAN OUT. PT STATES FALLING YESTERDAY AND HITTING HER HEAD ON A WALL. DENIES LOC. STATES 7/10 PAIN ON RIGHT SIDE OF HEAD. AAOX4, AMBULATORY, VSS. 02 AT 97 RA. DOES NOT PRESENT WITH FEVER.
--- NOTE | 2019-11-18 21:57 | Emergency Room Report ---
History of Present Illness General Chief Complaint: Asthma Source: Patient, Medical Record Present Illness HPI This is a 74-year-old female with a history of asthma. She presents with chief complaint of shortness of breath and coughing. Onset for about a week. Cough is nonproductive nature. Also with some runny nose and redness to her eyes. Worse with exertion. She is out of her albuterol. She also says she tripped and fell and hit her head on the wall yesterday. Pain is to the right side. Pain is 7-10. No loss of consciousness. No focal deficit. Not on blood thinner. Allergies: Coded Allergies: No Known Allergies (Unverified , 07/06/14) COVID-19 Screening Contact w/high risk pt: No Recent Travel to affected area: No Experienced COVID-19 symptoms?: No Patient History Past Medical History: see triage record, old chart reviewed, asthma Past Surgical History: other Pertinent Family History: none Social History: Denies: smoking Now: No Immunizations: other Reviewed Nursing Documentation: PMH: Agreed; PSxH: Agreed Nursing Documentation-PMH Hx Cardiac Problems: Yes Hx Hypertension: Yes Hx Asthma: Yes Hx COPD: Yes Hx Cancer: No Hx Gastrointestinal Problems: Yes Hx Neurological Problems: No Review of Systems Eye: Denies: eye pain, blurred vision ENT: Denies: ear pain, nose congestion, throat swelling Respiratory: Reports: cough, shortness of breath Cardiovascular: Denies: chest pain, palpitations Gastrointestinal: Denies: abdominal pain, diarrhea, nausea, vomiting Musculoskeletal: Denies: back pain, joint pain Skin: Denies: rash Neurological: Denies: headache, numbness Endocrine: Denies: increased thirst, increased urine Hematologic/Lymphatic: Denies: easy bruising All Other Systems: negative except mentioned in HPI Physical Exam Vital Signs Date Time Temp Pulse Resp B/P (MAP) Pulse Ox O2 Delivery O2 Flow Rate FiO2 11/18/19 21:09 98.2 82 18 158/89 (112) 96 Room Air Vitals with high blood pressure Sp02 EP Interpretation: reviewed, normal General Appearance: well appearing, no apparent distress, alert Head: normocephalic, atraumatic, other - Tenderness to the right parietal Eyes: bilateral eye PERRL, bilateral eye EOMI ENT: hearing grossly normal, normal pharynx Neck: full range of motion, supple, no meningismus Respiratory: chest non-tender, normal breath sounds, wheezing - faint expiratory Cardiovascular #1: regular rate, rhythm, no murmur Gastrointestinal: normal bowel sounds, non tender, no mass, no organomegaly, no bruit, non-distended Musculoskeletal: back normal, normal range of motion, gait/station normal Psychiatric: mood/affect normal Medical Decision Making Diagnostic Impression: Primary Impression: Acute asthma exacerbation Qualified Codes: J45.21 - Mild intermittent asthma with (acute) exacerbation Additional Impression: Head injury, acute Qualified Codes: S09.90XA - Unspecified injury of head, initial encounter ER Course Patient presents with shortness of breath and slight wheezing. Lungs cleared after breathing treatment. She felt better. She just ran out of her albuterol inhaler. She also has head injury. CT scans negative. No bleed or fracture. Will discharge home. Chest X-Ray Diagnostic Results Chest X-Ray Diagnostic Results : Chest X-Ray Ordered: Yes # of Views/Limited/Complete: 1 View Indication: Shortness of Breath EP Interpretation: Yes Interpretation: no consolidation, no effusion, no pneumothorax, no acute cardiopulmonary disease Impression: No acute disease Electronically Signed by: Ramy Coppola MD CT/MRI/US Diagnostic Results CT/MRI/US Diagnostic Results : Imaging Test Ordered: CT head Impression Negative per radiologist Last Vital Signs Date Time Temp Pulse Resp B/P (MAP) Pulse Ox O2 Delivery O2 Flow Rate FiO2 11/18/19 21:10 98.6 81 18 152/81 97 Room Air Status: improved Disposition: HOME, SELF-CARE Condition: Stable Scripts Prednisone* (PREDNISONE*) 20 Mg Tablet 40 MG ORAL DAILY, #8 TAB Prov: Ramy Coppola MD 11/18/19 Albuterol Sulfate* (PROAIR HFA*) 8.5 Gm Hfa.aer.ad 2 PUFFS INH Q6H, #8.5 GM 0 Refills Prov: Ramy Coppola MD 11/18/19 Patient Instructions: Asthma, Adult Additional Instructions: Follow-up with your doctor in 7 days. Return if symptoms worsen. Ramy Coppola MD Nov 18, 2019 21:57
[2019-11-18] MEDS ORDERED: Ipratropium 0.02% Inh Soln 2.5ml UD HHN ONE (22:00)
[2019-11-18] MEDS ORDERED: Albuterol ud Inhalation HHN ONE (22:00)
--- NOTE | 2019-11-18 22:00 | NUR ---
ED Nurse Note: pt went for xr and ct
[2019-11-18 22:17] VITALS: BP_SYST 149; BP_SYST 152; BP_DIAS 79; BP_DIAS 81
--- NOTE | 2019-11-18 22:29 | Diagnostic Imaging Report ---
EXAM: CT Head Without Intravenous Contrast CLINICAL HISTORY: TRAUMA TECHNIQUE: Axial computed tomography images of the head/brain without intravenous contrast. CTDI is 53 mGy and DLP is 1179 mGy-cm. One or more of the following dose reduction techniques were used: automated exposure control, adjustment of the mA and/or kV according to patient size, use of iterative reconstruction technique. COMPARISON: No relevant prior studies available. FINDINGS: Brain: No hemorrhage, herniation, or mass effect. Chronic microvascular ischemic changes. Ventricles: No hydrocephalus. Age related cerebral volume loss. Bones/joints: Unremarkable. Soft tissues: Unremarkable. Sinuses: Moderate left maxillary sinus mucosal thickening. Mastoid air cells: Clear. IMPRESSION: No acute hemorrhage, hydrocephalus, or mass effect.
--- NOTE | 2019-11-18 22:30 | NUR ---
ED Nurse Note: rt at bedside for breathing tx
--- NOTE | 2019-11-18 23:02 | Diagnostic Imaging Report ---
EXAM: XR Chest, 1 View CLINICAL HISTORY: SOB TECHNIQUE: Frontal view of the chest. COMPARISON: 11/04/2018 FINDINGS: Lungs: Linear opacity in the left lung base. Pleural space: No acute findings Heart: Unchanged. Bones/joints: No acute findings. IMPRESSION: Discoid atelectasis in the left lung base.
[2019-11-18] MEDS ORDERED: PROAIR HFA8.5 GM INH (23:04)
[2019-11-18] MEDS ORDERED: PREDNISONE20 MG ORAL (23:04)
[2019-11-18 23:05] VITALS: BP 145/76
--- NOTE | 2019-11-18 23:05 | NUR ---
ER DISCHARGE NOTE: Patient is cleared to be discharged per ERMD, pt is aox4, on room air, with stable vital signs. pt was given dc and prescription instructions, pt was able to verbalize understanding, pt id band removed without complications. pt is able to ambulate with steady gait. pt took all belongings.
== END 2019-11-18 23:05 | disposition home or self-care (01) ==
LOC: EMR 21:59
DX: J45.21 Mild intermittent asthma with (acute) exacerbation (principal); S09.90XA Unspecified injury of head, initial encounter; I10 Essential (primary) hypertension; J44.9 Chronic obstructive pulmonary disease, unspecified; W01.0XXA Fall on same level from slipping, tripping and stumbling without subsequent striking against object, initial encounter; Y92.9 Unspecified place or not applicable
CPT/HCPCS: 70450; 71045; 99284; J7512

== ENCOUNTER 2020-01-27 20:07 | Emergency (ER) | payer MEDICARE, MEDICAID ==
[~2020-01-27] VITALS: Ht 162.6 cm; Wt 65.8 kg
[~2020-01-27 20:07] MED LIST changes: +PREDNISONE20 MG ORAL; +PROAIR HFA8.5 GM INH
[2020-01-27 20:16] VITALS: BP 166/92
--- NOTE | 2020-01-27 20:21 | NUR ---
ED Nurse Note: ambulated to ed from home c/o asthma exacerbation x 2 days. denies cough or fever. reports hx of asthma and use on inhaler with no relief. ao4. and. vss. changed into gown; attached to monitor. all safety measures met.
--- NOTE | 2020-01-27 20:30 | NUR ---
ED Nurse Note: iv access established. blood and urine collected; sent down to lab. EKG done at bedside; NSR. RT at bedside for breathing tx.
--- NOTE | 2020-01-27 20:43 | Emergency Room Report ---
History of Present Illness General Chief Complaint: Asthma Source: Patient Present Illness HPI Patient presents with several days of worsening cough wheezing and dyspnea on exertion. She has a history of asthma and feels that this is the problem that this is getting worse. Last night she coughed up a little bit of phlegm that was clear in color. She denies fevers or chills, sore throat. She denies any nausea, vomiting or diarrhea. She also denies dysuria. She believes that some of this is related to allergies. Sometimes she takes Benadryl which helps with the congestion in her nose and helps her calm down also. This is not her worst attack. She is used steroids in the past. She has inhalers at home but no nebulizer. She has had some fleeting episodes of chest pain but not exertional. She denies any calf pain or edema. The difficulty in breathing and nasal congestion causes anxiety. She states the Benadryl helps with this also. No fevers, chills, sore throat, palpitations, nausea, vomiting, diarrhea, dysuria, abdominal pain, jint pain, rashes, visual changes, dizziness, headache. Allergies: Coded Allergies: No Known Allergies (Unverified , 07/06/14) COVID-19 Screening Contact w/high risk pt: No Recent Travel to affected area: No Experienced COVID-19 symptoms?: No COVID-19 Testing performed SENIOR HRIS ANALYST: No Patient History Past Medical History: see triage record Social History: Denies: smoking Social History Narrative From home. Born in [facility] Reviewed Nursing Documentation: PMH: Agreed; PSxH: Agreed Nursing Documentation-PMH Hx Cardiac Problems: No Hx Hypertension: Yes Hx Asthma: Yes Hx COPD: Yes Hx Cancer: No Hx Gastrointestinal Problems: Yes Hx Neurological Problems: No Review of Systems All Other Systems: negative except mentioned in HPI Physical Exam Vital Signs Date Time Temp Pulse Resp B/P (MAP) Pulse Ox O2 Delivery O2 Flow Rate FiO2 01/27/20 20:10 98.8 83 20 165/89 (114) 95 Room Air Sp02 EP Interpretation: reviewed, normal General Appearance: well appearing, no apparent distress, GCS 15 Head: normocephalic Eyes: bilateral eye normal inspection, bilateral eye PERRL, bilateral eye EOMI ENT: moist mucus membranes, other - Nasal congestion Neck: full range of motion, supple Respiratory: no respiratory distress, wheezing - Minimal with forced exhalation Cardiovascular #1: regular rate, rhythm, no edema Cardiovascular #2: 2+ radial (R) Gastrointestinal: normal inspection, normal bowel sounds, non tender, no mass, non-distended Genitourinary: no CVA tenderness Musculoskeletal: back normal, normal range of motion, no calf tenderness, gait/ station normal Neurologic: alert, oriented x3, grossly normal Psychiatric: mood/affect normal - Slightly anxious Skin: no rash, warm/dry Medical Decision Making Diagnostic Impression: Primary Impression: Acute asthma exacerbation Qualified Codes: J45.31 - Mild persistent asthma with (acute) exacerbation Additional Impression: Allergic rhinitis Qualified Codes: J30.89 - Other allergic rhinitis ER Course Patient with a history of asthma presents with dyspnea wheezing for several days. Differential includes exacerbation of asthma, bronchitis, COVID-19, pulmonary embolus, acute myocardial infarction amongst others. Based on history and physical pulmonary abuse is less likely. In addition the history is against this being COVID-19. Evaluation with EKG, chest x-ray and labs. The patient will be treated with Solu-Medrol and breathing treatments. Patient is placed on a cardiac monitor technician. EKG sinus rhythm left axis deviation incomplete right bundle branch block. Labs unremarkable. Chest x-ray no infiltrates. Patient improved with treatment but still complaining about congestion. No wheezing at this time. Discussed treatment plan and results with patient. No medical emergency at this time. Patient stable for outpatient observation and treatment. Laboratory Tests Test 01/27/20 20:30 White Blood Count 6.1 K/UL (4.8-10.8) Red Blood Count 4.30 M/UL (4.20-5.40) Hemoglobin 12.4 G/DL (12.0-16.0) Hematocrit 37.5 % (37.0-47.0) Mean Corpuscular Volume 87 FL (80-99) Mean Corpuscular Hemoglobin 28.8 PG (27.0-31.0) Mean Corpuscular Hemoglobin Concent 33.0 G/DL (32.0-36.0) Red Cell Distribution Width 13.2 % (11.6-14.8) Platelet Count 248 K/UL (150-450) Mean Platelet Volume 7.1 FL (6.5-10.1) Neutrophils (%) (Auto) 52.9 % (45.0-75.0) Lymphocytes (%) (Auto) 34.1 % (20.0-45.0) Monocytes (%) (Auto) 8.8 % (1.0-10.0) Eosinophils (%) (Auto) 2.8 % (0.0-3.0) Basophils (%) (Auto) 1.4 % (0.0-2.0) Prothrombin Time 10.6 SEC (9.30-11.50) Prothrombin Time INR 1.0 (0.9-1.1) Activated Partial Thromboplast Time 27 SEC (23-33) Urine Color Pale yellow Urine Appearance Slightly cloudy Urine pH 8 (4.5-8.0) Urine Specific [place] 1.010 (1.005-1.035) Urine Protein Negative (NEGATIVE) Urine Glucose (UA) Negative (NEGATIVE) Urine Ketones Negative (NEGATIVE) Urine Blood Negative (NEGATIVE) Urine Nitrite Negative (NEGATIVE) Urine Bilirubin Negative (NEGATIVE) Urine Urobilinogen Normal MG/DL (0.0-1.0) Urine Leukocyte Esterase 2+ (NEGATIVE) H Urine RBC 0-2 /HPF (0 - 2) Urine WBC 5-10 /HPF (0 - 2) H Urine Squamous Epithelial Cells Few /LPF (NONE/OCC) Urine Bacteria Few /HPF (NONE) Sodium Level 141 MMOL/L (136-145) Potassium Level 3.5 MMOL/L (3.5-5.1) Chloride Level 103 MMOL/L (98-107) Carbon Dioxide Level 32 MMOL/L (21-32) Anion Gap 6 mmol/L (5-15) Blood Urea Nitrogen 13 mg/dL (7-18) Creatinine 0.7 MG/DL (0.55-1.30) Estimated Glomerular Filtration Rate > 60 mL/min (>60) Glucose Level 95 MG/DL (74-106) Calcium Level 8.0 MG/DL (8.5-10.1) L Total Bilirubin 0.4 MG/DL (0.2-1.0) Aspartate Amino Transferase (AST) 28 U/L (15-37) Alanine Aminotransferase (ALT) 22 U/L (12-78) Alkaline Phosphatase 69 U/L (46-116) Total Creatine Kinase 101 U/L (26-308) Troponin I 0.000 ng/mL (0.000-0.056) Pro-B-Type Natriuretic Peptide 100 pg/mL (0-125) Total Protein 7.6 G/DL (6.4-8.2) Albumin 3.6 G/DL (3.4-5.0) Globulin 4.0 g/dL Albumin/Globulin Ratio 0.9 (1.0-2.7) L EKG Diagnostic Results Rate: normal Rhythm: NSR ST Segments: no acute changes Rhythm Strip Diag. Results EP Interpretation: yes Rhythm: NSR, no PVC's, no ectopy Chest X-Ray Diagnostic Results Chest X-Ray Diagnostic Results : Chest X-Ray Ordered: Yes # of Views/Limited/Complete: 1 View Indication: Shortness of Breath EP Interpretation: Yes Interpretation: no consolidation, no effusion, no pneumothorax, other - COPD Impression: Other Electronically Signed by: Electronically signed by Jose Ramon Marte MD Last Vital Signs Date Time Temp Pulse Resp B/P (MAP) Pulse Ox O2 Delivery O2 Flow Rate FiO2 01/27/20 22:00 98.8 86 20 166/92 99 Room Air 21 Status: improved Disposition: HOME, SELF-CARE Condition: Improved Scripts Oxymetazoline HCl (Afrin) 15 Ml [place] 2 SPRAYS NASAL TWICE A DAY PRN for congestion, #30 SPRAY Prov: Jose Ramon Marte MD 01/27/20 Prednisone* (PREDNISONE*) 20 Mg Tablet 40 MG ORAL DAILY, #10 TAB Prov: Jose Ramon Marte MD 01/27/20 Guaifenesin/Dextromethorphan (Robitussin Vuiii-Kzixi-Oixq Dm) 1 Each Capsule 5 ML PO Q6HR PRN for congestion and cough, #120 ML Prov: Jose Ramon Marte MD 01/27/20 Referrals: NON PHYSICIAN (PCP) Jose Ramon Marte MD Jan 27, 2020 20:43
[2020-01-27] MEDS ORDERED: Albuterol ud Inhalation HHN ONE (20:45)
[2020-01-27] MEDS ORDERED: Solu-MEDROL 125mg Inj IVP ONE (20:45)
[2020-01-27] MEDS ORDERED: Ipratropium 0.02% Inh Soln 2.5ml UD HHN ONE (20:45)
--- NOTE | 2020-01-27 21:06 | NUR ---
ED Nurse Note: cxr done at bedside with plant health care technician
[2020-01-27 21:07] LABS: ANION GAP 6 mmol/L (5-15); BILIRUBIN, URINE NEGATIVE (NEGATIVE); BLOOD UREA NITROGEN 13 mg/dL (7-18); CARBON DIOXIDE 32 MMOL/L (21-32); CHLORIDE 103 MMOL/L (98-107); COLOR,URINE PALE YELLOW; CREATININE 0.7 MG/DL (0.55-1.30); GLUCOSE, URINE (UA) NEGATIVE (NEGATIVE); KETONES,URINE NEGATIVE (NEGATIVE); NITRITE,URINE NEGATIVE (NEGATIVE); PH,URINE 8 (4.5-8.0); POTASSIUM 3.5 MMOL/L (3.5-5.1); PROTEIN,URINE NEGATIVE (NEGATIVE); SODIUM 141 MMOL/L (136-145); UROBILINOGEN,URINE NORMAL MG/DL (0.0-1.0)
[2020-01-27 21:10] LABS: BASOPHILS % (AUTO) 1.4 % (0.0-2.0); EOSINOPHILS % (AUTO) 2.8 % (0.0-3.0); HEMATOCRIT 37.5 % (37.0-47.0); HEMOGLOBIN 12.4 G/DL (12.0-16.0); LYMPHOCYTES % (AUTO) 34.1 % (20.0-45.0); MEAN CORPUSCULAR VOLUME 87 FL (80-99); MONOCYTES % (AUTO) 8.8 % (1.0-10.0); NEUTROPHILS % (AUTO) 52.9 % (45.0-75.0); PLATELET COUNT 248 K/UL (150-450); RED CELL DISTRIBUTION WIDTH 13.2 % (11.6-14.8); WHITE BLOOD COUNT 6.1 K/UL (4.8-10.8)
--- NOTE | 2020-01-27 21:20 | Diagnostic Imaging Report ---
EXAM: XR Chest, 1 View CLINICAL HISTORY: DYSPNEA TECHNIQUE: Frontal view of the chest. COMPARISON: 11/04/18 FINDINGS: Lungs: Low lung volumes with bronchovascular crowding. No consolidation, pleural effusion, or pneumothorax. Pleural space: See above. Heart: Unchanged cardiomegaly. Mediastinum: Unremarkable. Bones/joints: Unremarkable. IMPRESSION: 1. Unchanged cardiomegaly. 2. Low lung volumes with bronchovascular crowding. 3. Otherwise no acute cardiopulmonary disease. 4. If there is continued concern, recommend frontal and lateral chest radiographs or CT.
[2020-01-27 21:22] LABS: ALANINE AMINOTRANSFERASE 22 U/L (12-78); ALBUMIN 3.6 G/DL (3.4-5.0); ALBUMIN/GLOBULIN RATIO 0.9 (1.0-2.7); ALKALINE PHOSPHATASE 69 U/L (46-116); ASPARTATE AMINO TRANSFERASE 28 U/L (15-37); BILIRUBIN,TOTAL 0.4 MG/DL (0.2-1.0); CREATINE KINASE 101 U/L (26-308)
[2020-01-27 21:24] LABS: APPEARANCE,URINE SLIGHTLY CLOUDY; LEUKOCYTE ESTERASE ,URINE 2+ (NEGATIVE)
[2020-01-27 21:30] VITALS: BP 153/92
[2020-01-27] MEDS ORDERED: AFRIN NASAL SPR30 ML NASAL (21:53)
[2020-01-27] MEDS ORDERED: ROBITUSSIN COU1 EACH PO (21:53)
[2020-01-27] MEDS ORDERED: PREDNISONE20 MG ORAL (21:53)
[2020-01-27] MEDS ORDERED: guaiFENesin /DM 10ml syrup ORAL STA (21:54)
[2020-01-27 22:00] VITALS: BP 166/92
== END 2020-01-27 22:00 | disposition home or self-care (01) ==
LOC: EMR 20:30
DX: J45.31 Mild persistent asthma with (acute) exacerbation (principal); J30.89 Other allergic rhinitis; I10 Essential (primary) hypertension; J44.9 Chronic obstructive pulmonary disease, unspecified; I45.10 Unspecified right bundle-branch block
CPT/HCPCS: 36415; 71045; 80053; 81003; 82550; 83880; 84484; 85025; 85610; 85730; 93005; 96374; 99284; J2930

== ENCOUNTER 2020-03-14 15:18 | Emergency (ER) | payer MEDICARE, MEDICAID ==
[~2020-03-14] VITALS: Ht 154.9 cm; Wt 68.0 kg
[~2020-03-14 15:18] MED LIST changes: +AFRIN NASAL SPR30 ML NASAL; +ROBITUSSIN COU1 EACH PO
[2020-03-14 15:23] VITALS: BP 166/94
--- NOTE | 2020-03-14 15:52 | Emergency Room Report ---
History of Present Illness General Chief Complaint: Upper Respiratory Illness Source: Patient Present Illness HPI Patient is a 74-year-old female presents after increased congestion and cough. Prior history of asthma. States that she had recently been having increased difficulty with breathing. She had not been vomiting or having any diarrhea. Allergies: Coded Allergies: No Known Allergies (Unverified , 07/06/14) COVID-19 Screening Contact w/high risk pt: No Recent Travel to affected area: No Experienced COVID-19 symptoms?: No COVID-19 Testing performed TRAIN DRIVER: Yes COVID-19 Screening: Negative COVID-19 COVID-19 Testing Source: nasal swab Patient History Past Medical History: see triage record Reviewed Nursing Documentation: PMH: Agreed; PSxH: Agreed Nursing Documentation-PMH Past Medical History: No History, Except For Hx Cardiac Problems: No Hx Hypertension: Yes Hx Asthma: Yes Hx COPD: Yes Hx Cancer: No Hx Gastrointestinal Problems: Yes Hx Neurological Problems: No Review of Systems All Other Systems: negative except mentioned in HPI Physical Exam Vital Signs Date Time Temp Pulse Resp B/P (MAP) Pulse Ox O2 Delivery O2 Flow Rate FiO2 03/14/20 15:23 97.7 69 17 166/94 94 Room Air Sp02 EP Interpretation: reviewed, normal General Appearance: normal inspection, well appearing, no apparent distress, alert, GCS 15, non-toxic Head: atraumatic ENT: normal ENT inspection, hearing grossly normal, normal voice Neck: normal inspection, full range of motion, supple, no bony tend Respiratory: normal inspection, lungs clear, normal breath sounds, no respiratory distress, no retraction, no wheezing Cardiovascular #1: regular rate, rhythm, no edema Gastrointestinal: normal inspection, normal bowel sounds, non tender, soft, no guarding, no hernia Genitourinary: no CVA tenderness Musculoskeletal: normal inspection, back normal, normal range of motion Neurologic: alert, responsive, speech normal, normal inspection Psychiatric: normal inspection, judgement/insight normal, mood/affect normal Medical Decision Making Diagnostic Impression: Primary Impression: Allergic rhinitis Additional Impression: Asthma attack ER Course Patient presented for cough. Differential diagnosis include was not limited to sinusitis, allergic rhinitis, asthma among others. Patient's laboratory testing was unremarkable. EKG interpreted by me showed normal sinus rhythm with a rate of 69 with nonspecific T wave changes. Patient had continued benign exam. She appears to be stable for outpatient management. Patient is agreeable with discharge plan. Patient was given breathing treatment and requested further medications for sinus discomfort. She was advised to return if worse. She was given a prescription for Nasalcrom. The patient is advised to follow up with primary care doctor in 1-2 days. Patient is advised to return if any worsening condition or if any changes in status that are concerning. This report is dictated with [employer] floor sweeper software which may occasionally lead to discrepancies related to use of this software. Labs Test 03/14/20 16:00 White Blood Count 8.1 K/UL (4.8-10.8) Red Blood Count 4.47 M/UL (4.20-5.40) Hemoglobin 12.9 G/DL (12.0-16.0) Hematocrit 38.7 % (37.0-47.0) Mean Corpuscular Volume 87 FL (80-99) Mean Corpuscular Hemoglobin 28.8 PG (27.0-31.0) Mean Corpuscular Hemoglobin Concent 33.2 G/DL (32.0-36.0) Red Cell Distribution Width 13.6 % (11.6-14.8) Platelet Count 243 K/UL (150-450) Mean Platelet Volume 7.1 FL (6.5-10.1) Neutrophils (%) (Auto) 59.1 % (45.0-75.0) Lymphocytes (%) (Auto) 29.2 % (20.0-45.0) Monocytes (%) (Auto) 8.9 % (1.0-10.0) Eosinophils (%) (Auto) 2.0 % (0.0-3.0) Basophils (%) (Auto) 0.9 % (0.0-2.0) D-Dimer 0.31 mg/L FEU (0.00-0.49) Urine Color Pale yellow Urine Appearance Clear Urine pH 7 (4.5-8.0) Urine Specific [place] 1.005 (1.005-1.035) Urine Protein Negative (NEGATIVE) Urine Glucose (UA) Negative (NEGATIVE) Urine Ketones Negative (NEGATIVE) Urine Blood Negative (NEGATIVE) Urine Nitrite Negative (NEGATIVE) Urine Bilirubin Negative (NEGATIVE) Urine Urobilinogen Normal MG/DL (0.0-1.0) Urine Leukocyte Esterase Negative (NEGATIVE) Urine RBC 0-2 /HPF (0 - 2) Urine WBC 0-2 /HPF (0 - 2) Urine Squamous Epithelial Cells Few /LPF (NONE/OCC) Urine Bacteria Few /HPF (NONE) Sodium Level 137 MMOL/L (136-145) Potassium Level 3.8 MMOL/L (3.5-5.1) Chloride Level 102 MMOL/L (98-107) Carbon Dioxide Level 26 MMOL/L (21-32) Anion Gap 9 mmol/L (5-15) Blood Urea Nitrogen 13 mg/dL (7-18) Creatinine 0.8 MG/DL (0.55-1.30) Estimat Glomerular Filtration Rate > 60 mL/min (>60) Glucose Level 98 MG/DL (74-106) Calcium Level 8.7 MG/DL (8.5-10.1) Total Bilirubin 0.2 MG/DL (0.2-1.0) Aspartate Amino Transf (AST/SGOT) 18 U/L (15-37) Alanine Aminotransferase (ALT/SGPT) 20 U/L (12-78) Alkaline Phosphatase 64 U/L (46-116) Troponin I 0.000 ng/mL (0.000-0.056) Total Protein 7.8 G/DL (6.4-8.2) Albumin 4.0 G/DL (3.4-5.0) Globulin 3.8 g/dL Albumin/Globulin Ratio 1.1 (1.0-2.7) Lipase 182 U/L (73-393) Last Vital Signs Date Time Temp Pulse Resp B/P (MAP) Pulse Ox O2 Delivery O2 Flow Rate FiO2 03/14/20 15:39 69 17 Room Air 03/14/20 15:23 97.7 166/94 (118) 94 Status: improved Disposition: HOME, SELF-CARE Condition: Stable Scripts Cromolyn Sodium (NASALCROM) 26 Ml [place].pump 1 ML NS TWICE A DAY, #26 ML Prov: Genaro Paulino MD 03/14/20 Referrals: NON PHYSICIAN (PCP) Genaro Paulino MD Mar 14, 2020 15:52
[2020-03-14 16:08] LABS: APPEARANCE,URINE CLEAR; BASOPHILS % (AUTO) 0.9 % (0.0-2.0); BILIRUBIN, URINE NEGATIVE (NEGATIVE); COLOR,URINE PALE YELLOW; GLUCOSE, URINE (UA) NEGATIVE (NEGATIVE); HEMATOCRIT 38.7 % (37.0-47.0); HEMOGLOBIN 12.9 G/DL (12.0-16.0); KETONES,URINE NEGATIVE (NEGATIVE); LEUKOCYTE ESTERASE ,URINE NEGATIVE (NEGATIVE); LYMPHOCYTES % (AUTO) 29.2 % (20.0-45.0); MEAN CORPUSCULAR VOLUME 87 FL (80-99); MONOCYTES % (AUTO) 8.9 % (1.0-10.0); NEUTROPHILS % (AUTO) 59.1 % (45.0-75.0); NITRITE,URINE NEGATIVE (NEGATIVE); PH,URINE 7 (4.5-8.0); PLATELET COUNT 243 K/UL (150-450); PROTEIN,URINE NEGATIVE (NEGATIVE); RED BLOOD COUNT 4.47 M/UL (4.20-5.40); RED CELL DISTRIBUTION WIDTH 13.6 % (11.6-14.8); UROBILINOGEN,URINE NORMAL MG/DL (0.0-1.0); WHITE BLOOD COUNT 8.1 K/UL (4.8-10.8)
[2020-03-14] MEDS ORDERED: BENADRYL25 MG ORAL (16:18)
[2020-03-14] MEDS ORDERED: BACTRIM DS TAB1 EAC1 ORAL (16:18)
[2020-03-14] MEDS ORDERED: TYLENOL EXTRA500 MG ORAL (16:18)
[2020-03-14] MEDS ORDERED: MISOPROSTOL200 MCG PO (16:18)
[2020-03-14] MEDS ORDERED: LINZESS145 MCG PO (16:18)
[2020-03-14 16:20] LABS: ANION GAP 9 mmol/L (5-15); BLOOD UREA NITROGEN 13 mg/dL (7-18); CALCIUM 8.7 MG/DL (8.5-10.1); CARBON DIOXIDE 26 MMOL/L (21-32); CHLORIDE 102 MMOL/L (98-107); CREATININE 0.8 MG/DL (0.55-1.30); POTASSIUM 3.8 MMOL/L (3.5-5.1); SODIUM 137 MMOL/L (136-145)
[2020-03-14 16:24] LABS: ALANINE AMINOTRANSFERASE 20 U/L (12-78); ALBUMIN/GLOBULIN RATIO 1.1 (1.0-2.7); ALKALINE PHOSPHATASE 64 U/L (46-116); ASPARTATE AMINO TRANSFERASE 18 U/L (15-37); BILIRUBIN,TOTAL 0.2 MG/DL (0.2-1.0)
[2020-03-14] MEDS ORDERED: Albuterol/Ipratropium 3ml neb HHN ONE (16:30)
[2020-03-14] MEDS ORDERED: NASALCROM26 ML NS (17:45)
[2020-03-14 17:51] VITALS: BP 145/84
== END 2020-03-14 17:41 | disposition home or self-care (01) ==
LOC: EMR 15:43
DX: J45.909 Unspecified asthma, uncomplicated (principal); I10 Essential (primary) hypertension; J44.9 Chronic obstructive pulmonary disease, unspecified
CPT/HCPCS: 36415; 80053; 81001; 83690; 84484; 85025; 85379; 93005; 94640; 99284; U0002; J7620

== ENCOUNTER 2020-07-07 12:55 | Emergency (ER) | payer MEDICARE, MEDICAID ==
[~2020-07-07] VITALS: Ht 157.5 cm; Wt 68.0 kg
[~2020-07-07 12:55] MED LIST changes: +BACTRIM DS TAB1 EAC1 ORAL; +LINZESS145 MCG PO; +MISOPROSTOL200 MCG PO; +NASALCROM26 ML NS; +TYLENOL EXTRA500 MG ORAL
[2020-07-07 13:10] VITALS: BP 130/84
--- NOTE | 2020-07-07 13:10 | NUR ---
ED Nurse Note: Pt walked in to ED c/o abdominal pain radiating to her upper back x1 week. Per pt, she is having an episode of collitis and she's been gassy. Denies n/v/d. AAox4, verbally responsive. No SOB, on room air. Afebrile. ERPA at bedside.
[2020-07-07] MEDS ORDERED: Ketorolac 30mg Inj IV ONE (13:15)
[2020-07-07] MEDS ORDERED: Omnipaque-300 100ml vial INJ PRN (13:15)
--- NOTE | 2020-07-07 13:25 | NUR ---
ED Nurse Note: IV line established. Blood and urine sent to lab.
--- NOTE | 2020-07-07 13:29 | Emergency Room Report ---
History of Present Illness General Chief Complaint: Abdominal Pain Source: Patient Present Illness HPI 74-year-old female with history of gastritis here complaining of 2 weeks of worsening gastritis as well as flatulence. Denies any nausea or vomiting. Denies eating any spicy acidic food. Denies tobacco smoke, alcohol intake and drug use. Reports that the pain radiates to upper back. Has not had endoscopy done in the past. Denies any diarrhea or constipation, or blood in stool. Denies fever and chills. Abdomen is nonrigid and soft to touch. Patient also reports that she is very anxious and whenever her anxiety spikes her gastritis gets worse. Has not taken medication for symptom relief. Denies urinary symptoms. Complains of a dull diffuse abdominal pain with flatulence. Allergies: Coded Allergies: No Known Allergies (Unverified , 07/06/14) COVID-19 Screening Contact w/high risk pt: No Recent Travel to affected area: No Experienced COVID-19 symptoms?: No COVID-19 Testing performed FREIGHT CAR REPAIRER: No Patient History Past Medical History: see triage record Past Surgical History: none Pertinent Family History: none Now: No Immunizations: UTD Reviewed Nursing Documentation: PMH: Agreed; PSxH: Agreed Nursing Documentation-PMH Hx Cardiac Problems: No Hx Hypertension: Yes Hx Asthma: Yes Hx COPD: Yes Hx Cancer: No Hx Gastrointestinal Problems: Yes Hx Neurological Problems: No Review of Systems All Other Systems: negative except mentioned in HPI Physical Exam Vital Signs Date Time Temp Pulse Resp B/P (MAP) Pulse Ox O2 Delivery O2 Flow Rate FiO2 07/07/20 13:03 98.2 82 19 130/84 (99) 96 Room Air Sp02 EP Interpretation: reviewed, normal General Appearance: no apparent distress, alert, GCS 15, non-toxic Head: normocephalic, atraumatic Eyes: bilateral eye normal inspection, bilateral eye PERRL ENT: hearing grossly normal, normal pharynx, no angioedema, normal voice Neck: full range of motion, supple/symm/no masses Respiratory: chest non-tender, lungs clear, normal breath sounds, speaking full sentences Cardiovascular #1: regular rate, rhythm, no edema Gastrointestinal: normal bowel sounds, non tender, soft, no mass, no organomegaly, no peritonitis, no bruit, non-distended, no guarding, no hernia, no pulsatile mass, no rebound Rectal: deferred Genitourinary: no CVA tenderness Musculoskeletal: back normal Neurologic: alert, motor strength/tone normal, oriented x3, sensory intact, responsive, speech normal Psychiatric: judgement/insight normal, memory normal, no suicidal/homicidal ideation, anxious Skin: no rash, palpation normal, normal color Lymphatic: no adenopathy Medical Decision Making PA Attestation All diagnoses and treatment plans were reviewed and discussed with my gonzalez pervising physician Dr. Paulino Diagnostic Impression: Primary Impression: Diverticulitis Additional Impressions: UTI (urinary tract infection) Gastritis ER Course 74-year-old female with history of gastritis here complaining of 2 weeks of worsening gastritis as well as flatulence. Denies any nausea or vomiting. Denies eating any spicy acidic food. Denies tobacco smoke, alcohol intake and drug use. Reports that the pain radiates to upper back. Has not had endoscopy done in the past. Denies any diarrhea or constipation, or blood in stool. Denies fever and chills. Abdomen is nonrigid and soft to touch. Patient also reports that she is very anxious and whenever her anxiety spikes her gastritis gets worse. Has not taken medication for symptom relief. Denies urinary symptoms. Complains of a dull diffuse abdominal pain with flatulence. Ddx considered but are not limited to: appendicitis, cholecystitis, gastritis, gastroenteritis, UTI, pyelonephritis, SBO, diverticulitis, ID, pancreatitis, gastric ulcer, gastritis Vital signs: are WNL, pt. is afebrile H&PE are most consistent with: Possible gastric or duodenal ulcer due to the pain radiation to upper back ORDERS: abdominal CT, abdominal pain set, EKG, Pepcid, dicyclomine, Cipro, Flagyl ED INTERVENTIONS: Toradol, Pepcid, NS bolus DISCHARGE: At this time pt. is stable for d/c to home. Will provide printed patient care instructions, and any necessary prescriptions. Care plan and follow up instructions have been discussed with the patient prior to discharge.Take medication as directed, follow primary care provider for referral to retail department manager, if worsening symptoms return to the emergency room. I also recommend getting tested for H. pylori EKG Diagnostic Results Rate: normal Rhythm: NSR ST Segments: no acute changes Other Impression No acute ST changes ASA given to the pt in ED: No CT/MRI/US Diagnostic Results CT/MRI/US Diagnostic Results : Imaging Test Ordered: CT abdomen pelvis with contrast Impression COMPARISON: No relevant prior studies available. FINDINGS: The lung bases demonstrate no acute infiltrate. The heart is mildly enlarged. The liver, biliary tree, pancreas, spleen, and adrenal glands are within normal limits. There is mild bilateral hydroureteronephrosis, likely reflecting back pressure from the distended urinary bladder. Correlate for outlet obstruction. Diverticulitis of the proximal sigmoid colon. Adjacent stranding/phlegmon. No loculated abscess. No free air. No bowel obstruction. The appendix is unremarkable. Small sliding-type hiatal hernia. Abdominal aortic atherosclerosis. No aneurysm. Small fatty umbilical hernia. Minimal thoracolumbar dextrocurvature. Grade 1 L5 anterolisthesis due to facet arthropathy. No acute fracture. IMPRESSION: Sigmoid colonic diverticulitis. No abscess or free air. Mild bilateral hydroureteronephrosis, likely reflecting back pressure from the distended urinary bladder. Correlate for outlet obstruction. Incidental findings as above. Last Vital Signs Date Time Temp Pulse Resp B/P (MAP) Pulse Ox O2 Delivery O2 Flow Rate FiO2 07/07/20 13:03 98.2 82 19 130/84 (99) 96 Room Air Disposition: HOME, SELF-CARE Condition: Stable Patient Instructions: Diverticulitis, [id number], Gastritis, Adult, [id number], Urinary Tract Infection, [id number] Additional Instructions: Take medication as directed, follow primary care provider for referral to retail department manager, if worsening symptoms return to the emergency room. I also recommend getting tested for H. pylori Jessika Norton Jul 07, 2020 13:29
[2020-07-07 14:03] LABS: APPEARANCE,URINE CLEAR; BILIRUBIN, URINE NEGATIVE (NEGATIVE); GLUCOSE, URINE (UA) NEGATIVE (NEGATIVE); KETONES,URINE 1+ (NEGATIVE); LEUKOCYTE ESTERASE ,URINE 2+ (NEGATIVE); NITRITE,URINE NEGATIVE (NEGATIVE); PH,URINE 6.5 (4.5-8.0); PROTEIN,URINE 1+ (NEGATIVE); UROBILINOGEN,URINE 1 MG/DL (0.0-1.0)
[2020-07-07 14:05] LABS: BASOPHILS % (AUTO) 0.7 % (0.0-2.0); EOSINOPHILS % (AUTO) 0.8 % (0.0-3.0); HEMATOCRIT 37.8 % (37.0-47.0); HEMOGLOBIN 13.2 G/DL (12.0-16.0); LYMPHOCYTES % (AUTO) 13.6 % (20.0-45.0); MEAN CORPUSCULAR VOLUME 85 FL (80-99); MONOCYTES % (AUTO) 11.6 % (1.0-10.0); NEUTROPHILS % (AUTO) 73.3 % (45.0-75.0); PLATELET COUNT 239 K/UL (150-450); RED BLOOD COUNT 4.47 M/UL (4.20-5.40); RED CELL DISTRIBUTION WIDTH 14.3 % (11.6-14.8); WHITE BLOOD COUNT 10.8 K/UL (4.8-10.8)
[2020-07-07 14:07] LABS: COLOR,URINE YELLOW
[2020-07-07 14:12] LABS: ANION GAP 7 mmol/L (5-15); BLOOD UREA NITROGEN 14 mg/dL (7-18); CALCIUM 8.1 MG/DL (8.5-10.1); CARBON DIOXIDE 29 MMOL/L (21-32); CHLORIDE 100 MMOL/L (98-107); CREATININE 0.7 MG/DL (0.55-1.30); POTASSIUM 3.5 MMOL/L (3.5-5.1); SODIUM 136 MMOL/L (136-145)
[2020-07-07 14:16] LABS: ALANINE AMINOTRANSFERASE 25 U/L (12-78); ALBUMIN 3.8 G/DL (3.4-5.0); ALKALINE PHOSPHATASE 70 U/L (46-116); ASPARTATE AMINO TRANSFERASE 17 U/L (15-37); BILIRUBIN,TOTAL 0.7 MG/DL (0.2-1.0)
--- NOTE | 2020-07-07 14:25 | NUR ---
ED Nurse Note: Pt taken to CT.
--- NOTE | 2020-07-07 14:39 | NUR ---
ED Nurse Note: Pt returned from CT.
--- NOTE | 2020-07-07 14:59 | Diagnostic Imaging Report ---
EXAM: CT Abdomen and Pelvis With Intravenous Contrast CLINICAL HISTORY: ABD PAIN TECHNIQUE: Axial computed tomography images of the abdomen and pelvis with intravenous contrast. CTDI is 7.10 mGy and DLP is 352.30 mGy-cm. One or more of the following dose reduction techniques were used: automated exposure control, adjustment of the mA and/or kV according to patient size, use of iterative reconstruction technique. COMPARISON: No relevant prior studies available. FINDINGS: The lung bases demonstrate no acute infiltrate. The heart is mildly enlarged. The liver, biliary tree, pancreas, spleen, and adrenal glands are within normal limits. There is mild bilateral hydroureteronephrosis, likely reflecting back pressure from the distended urinary bladder. Correlate for outlet obstruction. Diverticulitis of the proximal sigmoid colon. Adjacent stranding/phlegmon. No loculated abscess. No free air. No bowel obstruction. The appendix is unremarkable. Small sliding-type hiatal hernia. Abdominal aortic atherosclerosis. No aneurysm. Small fatty umbilical hernia. Minimal thoracolumbar dextrocurvature. Grade 1 L5 anterolisthesis due to facet arthropathy. No acute fracture. IMPRESSION: Sigmoid colonic diverticulitis. No abscess or free air. Mild bilateral hydroureteronephrosis, likely reflecting back pressure from the distended urinary bladder. Correlate for outlet obstruction. Incidental findings as above.
[2020-07-07] MEDS ORDERED: METRONIDAZOLE500 MG ORAL (15:11)
[2020-07-07] MEDS ORDERED: CIPROFLOXACIN500 M2 ORAL (15:11)
[2020-07-07] MEDS ORDERED: DICYCLOMINE HCL10 MG ORAL (15:11)
[2020-07-07] MEDS ORDERED: FAMOTIDINE20 MG ORAL (15:11)
[2020-07-07 15:27] VITALS: BP 128/72
--- NOTE | 2020-07-07 15:27 | NUR ---
ED Nurse Note: Pt cleared by ERPA for discharge. DC instructions/prescription was given and explained to pt and verbalized understanding of teachings. All medical deviecs such as ID band and IV line removed. Pt is AAO x4, ambulatory and left with all personal belongings.
== END 2020-07-07 15:27 | disposition home or self-care (01) ==
LOC: EMR 14:06
DX: K57.92 Diverticulitis of intestine, part unspecified, without perforation or abscess without bleeding (principal); N39.0 Urinary tract infection, site not specified; K29.70 Gastritis, unspecified, without bleeding; J44.9 Chronic obstructive pulmonary disease, unspecified; M54.6 Pain in thoracic spine; K42.9 Umbilical hernia without obstruction or gangrene; N13.30 Unspecified hydronephrosis; I70.0 Atherosclerosis of aorta; I51.7 Cardiomegaly
CPT/HCPCS: 36415; 74177; 80053; 80307; 81003; 83690; 84484; 85025; 93005; 96361; 96374; 96375; 99284; J1885; J7030; Q9965; S0028